=== PATIENT | female | born 1960 | race Caucasian/White ===

== ENCOUNTER 2019-12-02 09:00 | Outpatient (RCR) | payer OTHER, SELFPAY ==
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
--- NOTE | 2019-09-03 08:20 | PCOTNOTE ---
Pt was called and cancelled appt this date 10/27 no insurance authorization.
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
--- NOTE | 2019-10-23 11:13 | PCPTNOTE ---
Patient called & cancelled scheduled appointment this date due to not being able to make it.
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
--- NOTE | 2019-10-31 14:21 | PCOTNOTE ---
Patient called and cancelled OT tx today due to illness.
--- NOTE | 2019-10-31 14:25 | PCPTNOTE ---
Patient called & cancelled scheduled appointment this date due to illness.
[2019-11-14 13:04] VITALS: BP_SYST 95
--- NOTE | 2019-11-14 14:43 | PTOPEVAL ---
PHYSICAL THERAPY PLAN OF CARE UPDATE AND PROGRESS REPORT Thank you for referring this patient to [facility]. I recommend continuing physical therapy to treat frozen shoulder for 2x/week for 4 weeks. Please review, sign, date and return this plan of care CARRIE. I agree with and certify that the following plan of care is medically necessary. Referring Physician Date Re-evaluation Diagnosis frozen shoulder Onset 06/26/19 Subjective Information Ar is here today after a Query Text:As Reported By Patient/ month of therapy following a Family frozen shoulder (obtained from immobilization following wrist ORIF). She is noticing greater ease in dressing, cooking, folding laundry, and carrying. Self Report Self Report Pain Level 0 Pain Score Pain Score 0: Self Report Additional Pain Score Comments Pt stated her pain was at a 3 after stretching and exercises. Scapular/ Shoulder Range of Motion Right Shoulder Flexion - Active 118 Shoulder Flexion - Passive 145 Shoulder Abduction - Active 81 Shoulder Abduction - Passive 95 Shoulder Medial Rotation - Active T11 Query Text:Reach Behind the Back Shoulder Lateral Rotation - Active 50 Shoulder Lateral Rotation - Passive 75 Shoulder Lateral Rotation - Active T2 Query Text:Reach Behind the Head Scapular/Shoulder Range of Motion horizontal abduction: Comments 87degrees Thumb Range of Motion Right Thumb MCP Flexion - Active 70 Thumb MCP Extension - Active 0 Thumb IP Flexion - Active 70 Thumb IP Extension - Active 0 Thumb CMC Radial Abduction - Active 45 Thumb Range of Motion Comments She contineus to have an adduction contracture of the thumb limited full opposition and rotation to touch the tip of the pinky, but she is now able to touch the of the tip of the pinky. AROM improved in the MCP and IP to normal limits. Scapular/Shoulder Strength Right Shoulder Flexion Strength 4+ Good + Shoulder Abduction Strength 4- Good - Shoulder Medial Rotation Strength 4+ Good + Shoulder Lateral Rotation Strength 4- Good - Clinical Summary Michela is participating in physical therapy for right frozen shoulder. She presents today with progress toward meeting her funct
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
--- NOTE | 2019-12-02 11:45 | PCOTNOTE ---
This treatment is being continued on visit number [id number]. Please see documentation on both accounts to view progress. Completed interventions, outcomes, and problems have been marked as Inactive to facilitate the copying of the Care plan routine for recurring accounts.
== END 2019-12-02 09:18 | disposition home or self-care (01) ==
LOC: ANHOT 09:00
PROVIDERS: PCP Internal Medicine Infectious Disease
DX: S63.014D Dislocation of distal radioulnar joint of right wrist, subsequent encounter (principal); S52.692D Other fracture of lower end of left ulna, subsequent encounter for closed fracture with routine healing; S52.501D Unspecified fracture of the lower end of right radius, subsequent encounter for closed fracture with routine healing; S82.001D Unspecified fracture of right patella, subsequent encounter for closed fracture with routine healing; M75.01 Adhesive capsulitis of right shoulder
CPT/HCPCS: 97018; 97022; 97035; 97110; 97140; 97161; 97165; 97760

== ENCOUNTER 2019-12-23 09:00 | Outpatient (RCR) | payer OTHER, SELFPAY ==
[2019-12-02 09:19] VITALS: BP_SYST 95
--- NOTE | 2019-12-02 11:44 | PCOTNOTE ---
The treatment documented on this account is a continuation of the treatment documented on visit number [id number]. Please see documentation on both accounts to view progress. The Plan of Care has been transitioned and updated within the new V#. I have addressed and agree with the discipline specific Problems, Interventions, and Goals for the current certification period. Completed interventions, outcomes, and problems have been marked as Inactive to facilitate the copying of the Care plan routine for recurring accounts.
--- NOTE | 2019-12-04 15:35 | PCPTNOTE ---
Patient called & cancelled scheduled appointment this date due to feeling unwell.
--- NOTE | 2019-12-23 08:38 | PTOPEVAL ---
PHYSICAL THERAPY DISCHARGE REPORT Thank you for referring this patient to [facility]. I recommend Michela discharge from PT at this time. Please review, sign, date and return this plan of care CARRIE. I agree with and certify that the following plan of care is medically necessary. Referring Physician Date Evaluation Information Problem Diagnosis right frozen shoulder Subjective Information Reports that she notices that Query Text:As Reported By Patient/ she can do more activities Family than she was prior. Pain can reach a 6/10 but only when she is doing alot of activity. She is not working due to COVID-19 precautions. Pain Assessment Timing of Pain Assessment Timing of Pain Assessment Assessment Pain Scale Pain Scale Used Numeric (1 - 10) Self Report Pain Assessment Right Shoulder(s) Reported Pain Level 0 Shoulder Right Shoulder Flexion - Active 167 Shoulder Abduction - Active 161 Shoulder Medial Rotation - Active L1 Query Text:Reach Behind the Back Shoulder Lateral Rotation - Active T3 Query Text:Reach Behind the Head Scapular/Shoulder Range of Motion horizontal abduction: 91 Comments Scapular/Shoulder Right Shoulder Flexion Strength 5 Normal Shoulder Abduction Strength 5 Normal Shoulder Medial Rotation Strength 5 Normal Shoulder Lateral Rotation Strength 5 Normal Palpation end range PROM spongey end feel, especially for ER and IR at 90deg abduction PT Clinical Summary Michela has been participating in physical therapy for right adhesive capsulitis. She demonstrates that she has met her functional goals at this time. She was re-educated on HEP including shoulder ER and IR stretches and she states she is confident and comfortable in performing. Michela understands to continue her HEP to continue feeling comfortable and gaining strength. I recommend discharge from PT at this time. PT Services Indicated No Potential Barriers to Goal Achievements None Support Requirements For Optimal None [place] Patient/Caregiver Informed of Benefits/ Yes Risks of Rehabilitation Patient/Caregiver Participated in Plan
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
== END 2019-12-23 11:29 | disposition home or self-care (01) ==
LOC: ANHOT 09:00
PROVIDERS: PCP Internal Medicine Infectious Disease
DX: S63.014D Dislocation of distal radioulnar joint of right wrist, subsequent encounter (principal); S52.692D Other fracture of lower end of left ulna, subsequent encounter for closed fracture with routine healing; S52.501D Unspecified fracture of the lower end of right radius, subsequent encounter for closed fracture with routine healing; S82.001D Unspecified fracture of right patella, subsequent encounter for closed fracture with routine healing; M75.01 Adhesive capsulitis of right shoulder
CPT/HCPCS: 97018; 97035; 97110; 97140

== ENCOUNTER 2020-02-24 07:11 | Outpatient (CLI) | payer OTHER, SELFPAY ==
--- NOTE | ~2020-02-24 | CT_ITS ---
EXAMINATION: CT lung screening EXAM DATE: 02/24/2020 07:34 INDICATION: Past history of smoking, shortness of breath. Personal history of nicotine dependence. TECHNIQUE: Spiral low dose CT of the chest without contrast. Axial, coronal and sagittal images were reviewed. The dose-length product (DLP) for this examination was 66.55 mGy-cm. The exposure was ta ilored according to patient size (auto mA exposure control), and iterative reconstruction (ASIR) was used as additional dose reduction technique. There is no prior study for comparison. FINDINGS: There is severe hyperinflation and emphysema. Opacities consistent with scarring. Tracheob ronchial tree is patent. There is no mediastinal, hilar or axillary lymphadenopathy. There are no pleural or pericardial effusions. There is no pneumothorax. Heart normal in size. There is mod erate coronary arterial calcification, arterial sclerosis. Upper abdomen is unremarkable. There is thoracic spondylosis without osteoblastic or osteolytic lesions identified. IMPRESSION: Lung-RADS category 2, benign appearance or behavior (<1% chance of malignancy); recommend continued LDCT screening in 1 year. Reviewed, dictated and finalized at location A.
== END 2020-02-24 07:12 | disposition home or self-care (01) ==
PROVIDERS: PCP Internal Medicine Infectious Disease; Visit Provider Internal Medicine Infectious Disease
DX: Z12.2 Encounter for screening for malignant neoplasm of respiratory organs (principal); Z87.891 Personal history of nicotine dependence
CPT/HCPCS: G0297

== ENCOUNTER 2025-07-10 08:01 | Outpatient (CLI) | payer MEDICARE, SELFPAY ==
--- OUTSIDE RECORDS SUMMARY | 2025-07-10 08:10 | XMS_ITS | Clinical Summary ---
Author Organization [facility] Address [address] [address] Care Team Providers Care Survey Field Technician Name Role Phone Mckenna Richter MD Primary Care Provider Source Comments [facility],non-owned Affiliates and Associated Physician Practices is amultiple site organization consisting of ambulatory clinics and hospital sitesin [place], [place], [place] and [place]. This disclosure is being madepursuant to the Care Everywhere program and may not contain all information available regarding this patient. Last updated 18.[facility] Allergies Active Allergy Reactions Criticality Noted Date Comments Hydrocodone Other 06/12/2020 Hydrocodone-Acetaminophen Dizziness High 10/13/2015 eyes rolled into the back of my head and I passed out Medications * Be aware that medications may not be up to date on this document. Alwaysverify current medications with the patient. albuterol HFA (PROAIR HFA) 108 (90 Base) MCG/ACT inhaler Inhale 2 puffs by mouth every 4 hours as needed for Shortness of Breath or Wheezing Active atorvastatin (LIPITOR) 10 MG tablet Take 10 mg by mouth at bedtime Active ipratropium hfa (ATROVENT HFA) 17 MCG/ACT inhaler Inhale 2 puffs by mouth 3 times daily Active acetaminophen (TYLENOL) 325 MG tablet Take 2 tablets by mouth every 6 hours while awake Maximum allowable Acetaminophen amount = 4 Grams (4000 mg) / 24 hours. 120 tablet 5 9 Active calcium-vitami n D (CALTRATE PLUS D) 600-200 MG-UNIT tablet Take 1 tablet by mouth once daily Active GNP ADULT ASPIRIN LOW STRENGTH 81 MG chew tablet 0 Active BISACODYL EC 5 MG tablet 0 Active SYMBICORT 160-4.5 MCG/ACT inhaler 0 Active ASPIRIN LOW DOSE 81 MG tablet 0 Active traMADol (ULTRAM) 50 MG tablet tramadol 50 mg tablet Active budesonide-for moterol (SYMBICORT) 160-4.5 MCG/ACT inhaler Symbicort 160 mcg-4.5 mcg/actuation HFA aerosol inhaler Active hydrocortisone , rectal, (ANUSOL-HC) 2.5 % cream Proctozone-HC 2.5 % topical cream perineal applicator Active PROCTOZONE-HC 2.5 % cream 0 Active rosuvastatin (CRESTOR) 20 MG tablet 0 Active multivitamin daily (ONE A DAY) tablet 0 Active CALCIUM-MAGNES IUM-ZINC PO Take 1 tablet by mouth once daily Active estrogens, conjugated, (PREMARIN) 0.625 MG/GM vaginal cream Insert 1 applicator into the vagina Two times a week Active Active Problems Problem Noted Date Diagnosed Date Syncope and collapse 09/03/2020 Closed fracture of lower end of right radius with routine healing 06/17/2019 Closed fracture of lower end of left ulna with routine healing 06/17/2019 Closed nondisplaced fracture of right patella with routine healing 06/17/2019 Wrist pain, acute, right 06/11/2019 Hyperlipidemia 04/01/2019 PVD (posterior vitreous detachment), right 07/17 Epiretinal membrane (ERM) of right eye 8 Chronic obstructive pulmonary disease 03/22/2016 Gastroesophageal reflux disease 03/22/2016 Osteoporosis 03/22/2016 Prediabetes 03/22/2016 Migraine 10/13/2015 Chest pain 11/18/2010 Family history of ischemic heart disease 011 Hypertension 11/18/2010 Personal history of nicotine dependence 11/18/19 11 Shortness of breath 11/18/2010 Closed dislocation of distal radioulnar joint of right wrist Resolved Problems Problem Noted Date Diagnosed Date Resolved Date Sinusitis 09/03/2020 10/01/2020 Immunizations Immunization Administration Dates Next Due INFLUENZA VACCINE 07/22/2020 INFLUENZA VACCINE, QUADR. (F LUZONE; FLULAVAL; FLUARIX; AFLURIA QUADRIVALENT; 6MO+), 0.5 ML (IIV4) 06/12/2019 Family History Medical History Relation Name Comments CAD (Coronary Artery Disease) Father Diabetes - Type 2 Mother CAD (Coronary Artery Disease) Paternal Grandfather Relation Name Status Comments Father Mother Paternal Grandfather Social History Tobacco Use Types Packs/Day Years Used Date Smoking Tobacco: Former Cigarettes Q uit: 04/25/2017 Smokeless Tobacco: Never Comments:1 PPD for 40 years Alcohol Use Standard Drinks/Week Comments No 0 (1 standard drink = 0.6 oz pur e alcohol) Comments No Sex and Gender Information Value Date Recorded Sex Assigned at Not on file Legal Sex Female 2:07 PM CDT Gender Identity Not on file Sexual Orientation Not on file Last Filed Vital Signs Vital Sign Reading Time Taken Comments Blood Pressure 124/79 06/23/2020 11:20 AM CDT Pulse 75 06/23/2020 11:20 AM CDT Temperature 36.2 C (97.2 F) 06/23/2020 10:50 AM CDT Respiratory Rate 19 06/23/2020 11:20 AM CDT Oxygen Saturation 98% 06/23/2020 11:20 AM CDT Inhaled Oxygen Concentration 21% 06/26/2019 7 :15 AM CDT Weight 41.3 kg (91 lb) 06/23/2020 8:10 AM CDT Height 162.6 cm (5' 4) 06/23/2020 8:10 AM CDT Body Mass Index 15.62 06/23/2020 8:10 AM CDT Plan of Treatment Health Maintenance Due Date Last Done Comments BONE DENSITY TESTING 1960 COLON MONITORING 1960 COLONOSCOPY - COLON CA SCREENING 1960 CT COLONOGRAPHY - COLON CA SCREENING 1960 FIT - COLON CA SCREENING 1960 FLEX SIG - COLON CA SCREENING 1960 MAMMOGRAM 1960 HIV SCREENING 01/28/1975 HEPATITIS C SCREENING 01/24/1978 DTAP/TDAP/TD VACCINES (1 - Tdap) 01/28/1979 PNEUMOCOCCAL VACCINE 50+ (1 of 2 - PCV) 01/28/1979 ZOSTER VACCINE (1 of 2) 01/28/2010 Respiratory Syncytial Virus (RSV) Vaccine Pt: or over 60 yrs (1 - Risk 60-74 years 1-dose series) 2020 COLOGUARD (AGES 45-75) - COL ON CA SCREENING 02/26/2023 02/27/2020 Colorectal Cancer Screening 02/26/2023 DEPRESSION SCREENING 09/25/2024 COVID-19 VACCINE (1 - 2023-2 5 season) 2025 INFLUENZA VACCINE (#1) 2025 0, 06/12/2019 HEPATITIS B VACCINE Aged Out No longe r eligible based on patient's age to complete this topic HIB VACCINE Aged Out No longer eligi ble based on patient's age to complete this topic HPV VACCINE Aged Out No longer eligi ble based on patient's age to complete this topic MENINGOCOCCAL (Group B) VACCINE SHARED DECISION-MAKING Aged Out No longer eligible based on patient's age to complete this topic MENINGOCOCCAL GROUPS A/C/Y/W VACCINE Aged Out No longer eligible b ased on patient's age to complete this topic Goals Goal Patient Goal Type Associated Problems Recent Progress Patient-Stated? Author Mobility General No Juan José Simpson, RN Note: Expected end date: 02-11 The goal is to maintain or improve your mobility at the optimum level for you. Interventions: Medical Devices Implanted Type Area Gage Designer Device Identifier Shelf Expiration Date Model / Serial / Lot Dvr Crosslock Standard Plate Right Implanted:Qty: 1 on 06/26/2019 by Daylin Cutler MD at [facility] Right: Wrist [id number] / / Wire K 2mm 6in Fx Nonster Implanted:Qty: 2 on 06/26/2019 by Daylin Cutler MD at [facility] Right: Wrist [employer] [id number] / / [place] Tefl Implanted:Qty: 1 on 06/26/2019 by Daylin Cutler MD at [facility] Right: Wrist [employer] 10/18/2023 [id number] / / Screw 27.Mm X 22m Implanted:Qty: 1 on 06/26/2019 by Daylin Cutler MD at [facility] Right: Wrist [id number] / / Wire K 1.6mm Ss Fx Nonster Implanted:Qty: 3 on 06/26/2019 by Daylin Cutler MD at [facility] Right: Wrist [employer] [id number] / / Low Profile Non-Locking Screw 2.7mm, 12mm Implanted:Qty: 1 on 06/26/2019 by Daylin Cutler MD at [facility] Right: Wrist [id number] / / Screw 2.7mm 14mm Lopro Nonster Bone Lf Implanted:Qty: 1 on 06/26/2019 by Daylin Cutler MD at [facility] Right: Wrist [employer] [id number] / / Screw 2.7mm 16mm Lopro Nonster Bone Lf Implanted:Qty: 1 on 06/26/2019 by Daylin Cutler MD at [facility] Right: Wrist [employer] [id number] / / Locking Screw 2.7mm, 14mm Implanted:Qty: 1 on 06/26/2019 by Daylin Cutler MD at [facility] Right: Wrist [id number] / / Screw 2.7mm 20mm Crsslck Tpr Head 3 Ld Implanted:Qty: 4 on 06/26/2019 by Daylin Cutler MD at [facility] Right: Wrist [employer] [id number] / / Screw 2.7mm 22mm Lck Christiano Nonster Bone Implanted:Qty: 2 on 06/26/2019 by Daylin Cutler MD at [facility] Right: Wrist [employer] [id number] / / Multi-Directio nal Screw 2.7mm, 22mm Implanted:Qty: 1 on 06/26/2019 by Daylin Cutler MD at [facility] Right: Wrist [id number] / / Lens Iol 0 D +19 [place] Mod L Planar Acrsf - [id number] Implanted:Qty: 1 on 03/17/2020 by Rajesh Lopez MD at [facility] Right: Eye Jose Digerati 05/25/2022 [id number] / [id number] / Acrysof. Iq Iol With Ultrasert 19.0 Implanted:Qty: 1 on 06/23/2020 by Erma Lepe MD at [facility] 03/09/2023 [id number] 19.0D / [id number] / Insurance [facility] AENA Advance Directives * Full Code (Latest Code Status on File) Date Activated Date Inactivated Comments 06/11/2019 2:02 AM 06/12/2019 3:33 PM * Full Code Date Activated Date Inactivated Comments 06/11/2019 12:19 AM 06/11/2019 2:02 AM Care Teams Survey Field Technician Relationship Specialty Start Date End Date Mckenna Richter MD [address] [place], [place] [id number] PCP - General Internal Medicine 06/10/19
--- OUTSIDE RECORDS SUMMARY | 2025-07-10 08:10 | XMS_ITS | Clinical Summary ---
Author Organization [facility] Address [address] [place] [address] Phone Care Team Providers Care Refinery Operator Coking Name Role Phone Mckenna Richter MD Primary Care Provider Allergies Active Allergy Reactions Criticality Noted Date Comments Hydrocodone-Acetamin ophen Other (see Comments) High 10/13/2015 eyes rolled into the back of my head and I passed out Medications acetaminophen (TYLENOL) 325 MG Tablet Take 325 mg by mouth every 4 hours as needed (2 tabs occasionally). Active VENTOLIN HFA 108 (90 Base) MCG/ACT Aerosol SolutionIndicati ons:Chronic obstructive pulmonary disease, unspecified COPD type take 2 Puffs by inhalation every 4 hours as needed for Wheezing. 8.5 g 8 Active Active Problems Problem Noted Date Diagnosed Date Tobacco use disorder 03/20/2017 Gastroesophageal reflux disease 03/22/2016 Gastritis without bleeding 03/22/2016 Prediabetes 03/22/2016 Osteoporosis 03/22/2016 Chronic obstructive pulmonary disease 03/22/2016 Migraine 10/13/2015 Resolved Problems Problem Noted Date Diagnosed Date Resolved Date Sinus bradycardia 10/13/2015 03/22/2016 Family History Medical History Relation Name Comments Chronic Obstructive Pulmonary Disease Father Colon Cancer Father Heart Disease Father Diabetes Maternal Grandfather Heart Disease Maternal Grandfather Diabetes Maternal Grandmother Heart Disease Maternal Grandmother Diabetes Mother Hepatitis Mother Rheumatoid Arthritis Mother Diabetes Paternal Grandfather Heart Disease Paternal Grandfather Diabetes Paternal Grandmother Relation Name Status Comments Father Maternal Grandfather Maternal Grandmother Mother Paternal Grandfather Paternal Grandmother Social History Tobacco Use Types Packs/Day Years Used Date Smoking Tobacco: Former Cigarettes 0.5 43 Smokeless Tobacco: Never Alcohol Use Standard Drinks/Week Comments No 0 (1 standard drink = 0.6 oz pur e alcohol) Comments No Sex and Gender Information Value Date Recorded Sex Assigned at Not on file Legal Sex Female 11:36 AM UX VISUAL DESIGNER Gender Identity Not on file Sexual Orientation Not on file Last Filed Vital Signs Vital Sign Reading Time Taken Comments Blood Pressure 108/70 11/06/2017 10:35 AM UX VISUAL DESIGNER Pulse 66 11/06/2017 10:35 AM UX VISUAL DESIGNER Temperature 36.4 C (97.5 F) 11/06/2017 10:35 AM UX VISUAL DESIGNER Respiratory Rate 18 11/06/2017 10:35 AM UX VISUAL DESIGNER Oxygen Saturation 98% 11/06/2017 10:35 AM UX VISUAL DESIGNER Inhaled Oxygen Concentration - - Weight 39 kg (86 lb) 11/06/2017 10:35 AM UX VISUAL DESIGNER Height 167.6 cm (5' 6) 11/06/2017 10:35 AM UX VISUAL DESIGNER Body Mass Index 13.88 11/06/2017 10:35 AM UX VISUAL DESIGNER Plan of Treatment Health Maintenance Due Date Last Done Comments Hepatitis C Virus (HCV) Screening 1960 TdaP Immunization 1960 Pneumococcal Immunization (5 0+ years) (1 of 2 - PCV) 01/28/1979 Cologuard 01/28/2005 Colonoscopy 01/28/2005 Colorectal Cancer Screening 01/28/2005 Immunochemical Fecal Occult Blood 01/28/2005 Zoster Immunization (1 of 2) 01/28/2010 Respiratory Syncytial Virus (RSV) Immunization (Adult) (1 - Risk 60-74 years 1-dose series) 2020 Influenza Immunization (#1) 2025 SARS-COV-2 Immunization ( season) 2025 Hepatitis B Immunization Aged Out No longer eligible based on patient's age to complete this topic Human Papillomavirus (HPV) Immunization Aged Out No longer eligible b ased on patient's age to complete this topic Meningococcal Immunization (ACWY) Aged Out No longer eligible based on patient's age to complete this topic Rotavirus Immunization Aged Out No lo nger eligible based on patient's age to complete this topic Care Teams Refinery Operator Coking Relationship Specialty Start Date End Date Mckenna Richter MD [address] [place] [address] PCP - General Internal Medicine 02/12/21
--- OUTSIDE RECORDS SUMMARY | 2025-07-10 08:10 | XMS_ITS | Clinical Summary ---
Author Organization [facility] [address] [place] [id number] Care Team Providers Care Structural Ironworker Name Role Phone Mckenna Richter MD Primary Care Provider Deandre Gonzalez MD Unavailable [phone] Allergies Active Allergy Reactions Criticality Noted Date Comments Acetaminophen-Codeine Unknown High 11/22/2010 Codeine Dizziness Low Sedated s/e Medications aspirin 81 mg enteric coated tablet 0 Active Tab-A-Cornelia 400 mcg tablet 1 Active ipratropium (ATROVENT HFA) 17 mcg/actuation inhaler Inhale 2 puffs 3 (three) times a day Active Easi[employer]ent [employer] Chamber inhaler 1 Active Symbicort 160-4.5 mcg/actuation inhaler 1 Active ProAir HFA 90 mcg/actuation inhaler 1 Active acetaminophen (TYLENOL) 325 mg tablet Take 2 tablets (650 mg total) by mouth 9 Active atorvastatin (LIPITOR) 80 mg tablet TAKE 1 TABLET BY MOUTH EVERY DAY TO LOWER CHOLESTEROL 3 Active megestroL (MEGACE) 40 mg tablet Take 1 tablet (40 mg total) by mouth 3 (three) times a day 3 Active metoprolol tartrate (LOPRESSOR) 25 mg immediate release tablet TAKE 1/2 TABLET BY MOUTH TWICE A DAY FOR BLOOD PRESSURE 3 Active pen needle, diabetic 32 gauge x 5/32 needle 1 each daily 100 each [address] (PROTONIX) 40 mg EC tablet Take 1 tablet (40 mg total) by mouth daily 4 Active denosumab (PROLIA) 60 mg/mL syringeIndicatio ns:postmenopausa l osteoporosis and high fracture risk Inject 1 mL (60 mg total) under the skin once for 1 dose 1 mL 5 Active Active Problems Problem Noted Date Diagnosed Date Hypercalcemia 12/04/2024 Assessment & Plan (03/25/2025 9:57 AM CDT): Chronic problem. Now seeing Dr Gonzalez (renal in [place]) SAW 10/22/24, 01/14/25, 07/08/25. Will sign release to get copy of recent notes/labs. Low serum parathyroid hormone (PTH) 12/04/2024 Assessment & Plan (03/25/2025 9:57 AM CDT): Chronic problem. Now seeing Dr Gonzalez (renal in [place]) SAW 10/22/24, 01/14/25, 07/08/25. Will sign release to get copy of recent notes/labs. Hyperthyroidism 12/04/2024 Assessment & Plan (03/25/2025 9:54 AM CDT): New problem. Had labs & US completed at [facility] 11/2024 but never rec'd results (office called to get them faxed here today). Will recheck TFTs today as those labs will be 3+ mos old. Will update labs. Does not mychart. Verified phone #/address to contact re: results. Other osteoporosis without current pathological fracture 09/12/2023 Assessment & Plan (03/25/2025 9:56 AM CDT): Chronic problem. Started Tymols 80mcg injection daily 09/2023 but had to stop d/t leg pain. Prolia injection 12/12/24. Due end of 05/2025. Instructed to contact [employer] to get cheaper Prolia through patient support: [phone] Seeing renal & calcium/D stopped. Follow a Bone Healthy Diet and lifestyle: -Consume Calcium and vit D rich foods -Fall precautions--be careful. Bone thinning could be an easy fracture. -Perform weight bearing exercises at least 3 days a week for bone strengthening (walking is an excellent option). Will update labs & DEXA at [facility] in [place]. Does not mychart. Verified phone #/address to contact re: results. Assessment & Plan (10/08/2024 10:15 AM HAND TUBE WINDER): Chronic problem. Started Tymols 80mcg injection daily 09/2023. Discussed that not to exceed 2 years of treatment. Follow a Bone Healthy Diet and lifestyle: -Consume Calcium and vit D rich foods -Calcium and vitamin D3 supplementation daily.). -Fall precautions--be careful. Bone thinning could be an easy fracture. -Perform weight bearing exercises at least 3 days a week for bone strengthening (walking is an excellent option). Will update labs & DEXA at [facility] in [place]. Does not mychart. Verified phone #/address to contact re: results. Assessment & Plan (01/09/2024 9:48 AM CDT): Chronic problem. Started Tymols 80mcg injection daily 09/2023. Discussed that not to exceed 2 years of treatment. Will update labs today. Does not mychart. Verified phone #/address to contact re: results. Will sign release to get copy of Dexa from [facility] today. Assessment & Plan (09/12/2023 1:00 PM HAND TUBE WINDER): Multifactorial, in a patient with early surgical menopause, heavy smoker most of her adult life. Daily weight bearing exercise were recommended as well as fall precautions discussed 600 mg daily elemental calcium twice a day recommended 800-1000 IU of vid D recommended. Check serum vit D levels. Might recommended Prescription vit D if very low levels are found. Would recommend to start anabolic agents, with Tymlos Rx was sent. Vitamin D deficiency 09/12/2023 Assessment & Plan (03/25/2025 9:58 AM CDT): Chronic problem. Now seeing Dr Gonzalez (renal in [place]) SAW 10/22/24, 01/14/25, NOV 07/08/25. Will sign release to get copy of recent notes/labs. Calcium/vitamin D stopped 10/[address] Lisa. Assessment & Plan (10/08/2024 9:59 AM HAND TUBE WINDER): Chronic problem. Currently taking 800-1000IU daily. Will update labs at [facility] in [place]. Does not mychart. Verified phone #/address to contact re: results. Component Latest Ref Rng 09/12/2023 01/09/2024 Vitamin D 25-OH 30 - 80 ng/mL 58 56 Assessment & Plan (01/09/2024 9:53 AM CDT): Chronic problem. Currently taking 800-1000IU daily. Will update labs today. Does not mychart. Verified phone #/address to contact re: results. Component Latest Ref Rng 09/12/2023 Vitamin D 25-OH 30 - 80 ng/mL 58 Surgical History Surgery Date Site/Laterality Comments TONSILLECTOMY HYSTERECTOMY WRIST SURGERY Medical History Medical History Date Comments High cholesterol Brain aneurysm Pacemaker COPD (chronic obstructive pulmonary disease) CAD (coronary artery disease) SD (myocardial infarction) (HCC) 2020 Family History Medical History Relation Name Comments Skin cancer Sister Relation Name Status Comments Sister Social History Tobacco Use Types Packs/Day Years Used Date Smoking Tobacco: Former Smokeless Tobacco: Former Alcohol Use Standard Drinks/Week Comments Not Currently 0 (1 standard drink = 0.6 oz pur e alcohol) PHQ-2 Answer Date Recorded PHQ-2 Total Score (If total score is 3 or more points, staff should administer the PHQ-9) 2 09/12/2023 Personal Safety Answer Date Recorded Have you ever been in or are you currently in a harmful physical or emotional relationship or is someone making you feel afraid or unsafe? Denies 12/12/2024 Comments Unknown Sex and Gender Information Value Date Recorded Sex Assigned at Not on file Legal Sex Female 7:14 AM HAND TUBE WINDER Gender Identity Not on file Sexual Orientation Not on file Obstetrics History Last Filed Vital Signs Vital Sign Reading Time Taken Comments Blood Pressure 110/72 03/25/2025 9:03 AM CDT Pulse 80 03/25/2025 9:03 AM CDT Temperature 37.4 C (99.3 F) 12/12/2024 1:49 PM CDT Respiratory Rate 16 03/25/2025 9:03 AM CDT Oxygen Saturation 100% 12/12/2024 1:49 PM CDT Inhaled Oxygen Concentration - - Weight 43.7 kg (96 lb 6.4 oz) 03/25/2025 9:03 AM CDT Height 167.6 cm (5' 5.98) 03/25/2025 9:03 AM CD T Body Mass Index 15.57 03/25/2025 9:03 AM CDT Plan of Treatment Health Maintenance Due Date Last Done Comments Breast Cancer Screening-Mammogram 1960 Colon Cancer Screening-Colonoscopy 1960 Hepatitis C Screening 1960 DTaP/Tdap/Td Vaccine (1 - Tdap) 01/28/1971 Hepatitis B Screening 01/28/1978 Pneumococcal vaccine 65+ (1 of 2 - PCV) 01/28/1979 Zoster Vaccine (1 of 2) 01/28/1979 Depression Screening 09/12/2024 09/12/2023 Well Visit 65+ 01/28/2025 Influenza Vaccine (#1) 2025 07/22/2020, 2018 Fall Risk Assessment 12/12/2025 12/12/2024, 09/12/2023, 11/03/2020 Osteoporosis Screening-Bone Density Scan 11/06/2026 11/06/2024 Procedures Procedure Name Priority Date/Time Associated Diagnosis Comments DEXA AXIAL SKELETON BONE DENSITY 1 OR MORE SITES Schedule Routine, Read Routine (OP Routine) 11/06/2024 11:16 AM HAND TUBE WINDER Other osteoporosis without current pathological fracture from Last 3 Months or Most Recently Relevant to Health Maintenance Results * Dexa Axial Skeleton Bone Density 1 or 2 Site (11/06/2024 11:16 AM HAND TUBE WINDER) Anatomical Region Laterality Modality Body N/A Radiographic Giuliana ging 11/06/2024 11:1 6 AM HAND TUBE WINDER us Jemima Arguello NP IMG DXA PROCEDURES Final Result from Last 3 Months or Most Recently Relevant to Health Maintenance Insurance [facility] AETNA MEDICARE GOLD Care Teams Structural Ironworker Relationship Specialty Start Date End Date Mckenna Richter MD [address] [place] [address] PCP - General Internal Medicine 09/12/23 Deandre Gonzalez MD [address] [address] Consulting Physician Nephrology 03/25/25
--- NOTE | 2025-07-10 13:11 | WPDSIXMINUTE ---
Six Minute Walk Procedure Procedure Performed Pulmonary Stress Test (6 min walk) Six Minute Walk Six Minute Walk: This is a 6 minute walk test. The test was performed and interpreted in accordance with the 2014 ERS/ATS task force guidelines. Findings: The patient's resting room air oxygen saturation measured by pulse oximetry was 96%, the heart rate was 81 bpm, and the modified Matt dyspnea score was 0.5. Patient ambulated for 305 meters and oxygen saturation remained 89 to 94%. At the end of the study the heart rate was 99 bpm and the modified Matt dyspnea score was 3. The patient did not qualify for supplemental oxygen at rest or with ambulation. There are no prior studies for comparison.
== END 2025-07-10 08:02 | disposition home or self-care (01) ==
PROVIDERS: PCP Internal Medicine Infectious Disease; Visit Provider Internal Medicine Pulmonary Disease
DX: J44.9 Chronic obstructive pulmonary disease, unspecified (principal)
CPT/HCPCS: 94618

== ENCOUNTER 2025-07-24 07:41 | Outpatient (CLI) | payer MEDICARE, SELFPAY ==
--- OUTSIDE RECORDS SUMMARY | 2025-07-15 10:16 | XMS_ITS | Clinical Summary ---
Author Organization [facility] [address] [place] [id number] Care Team Providers Care Head Bucker Name Role Phone Mckenna Richter MD Primary Care Provider Deandre Gonzalez MD Unavailable [phone] Allergies Active Allergy Reactions Criticality Noted Date [...] problem. Now seeing Dr Gonzalez (renal in [place]) SAW 10/22/24, 01/14/25, 07/08/25. Will sign release to get copy of recent notes/labs. Low serum parathyroid hormone (PTH) 12/04/2024 Assessment & Plan (03/25/2025 9:57 AM CDT): Chronic problem. Now seeing Dr Gonzalez (renal in [place]) SAW 10/22/24, 01/14/25, 07/08/25. Will sign release to get copy of recent notes/labs. Hyperthyroidism 12/04/2024 Assessment & Plan (03/25/2025 9:54 AM CDT): New problem. Had labs & US completed at [facility] 11/2024 but never rec'd results (office called [...] Due end of 05/2025. Instructed to contact [employer] to get cheaper Prolia through patient support: [phone] Seeing renal & calcium/D stopped. Follow a Bone Healthy Diet and lifestyle: -Consume Calcium and vit D rich foods -Fall precautions--be careful. Bone thinning could be an easy fracture. -Perform weight bearing exercises at least 3 days a week for bone strengthening (walking is an excellent option). Will update labs & DEXA at [facility] in [place]. Does not mychart. Verified phone #/address to contact re: results. Assessment & Plan (10/08/2024 10:15 AM PERFORATOR OPERATOR): Chronic problem. Started Tymols 80mcg injection daily [...] option). Will update labs & DEXA at [facility] in [place]. Does not mychart. Verified phone #/address to contact re: results. Assessment & Plan (01/09/2024 9:48 AM CDT): Chronic problem. Started Tymols 80mcg injection daily 09/2023. Discussed that not to exceed 2 years of treatment. Will update labs today. Does not mychart. Verified phone #/address to contact re: results. Will sign release to get copy of Dexa from [facility] today. Assessment & Plan (09/12/2023 1:00 PM PERFORATOR OPERATOR): Multifactorial, in a patient with early surgical [...] problem. Now seeing Dr Gonzalez (renal in [place]) SAW 10/22/24, 01/14/25, NOV 07/08/25. Will sign release to get copy of recent notes/labs. Calcium/vitamin D stopped 10/[address] Lisa. Assessment & Plan (10/08/2024 9:59 AM PERFORATOR OPERATOR): Chronic problem. Currently taking 800-1000IU daily. Will update labs at [facility] in [place]. Does not mychart. Verified phone #/address to [...] obstructive pulmonary disease) CAD (coronary artery disease) [place] (myocardial infarction) (HCC) 2020 Family History Medical [...] on file Legal Sex Female 7:14 AM PERFORATOR OPERATOR Gender Identity Not on file Sexual Orientation [...] Read Routine (OP Routine) 11/06/2024 11:16 AM PERFORATOR OPERATOR Other osteoporosis without current pathological fracture from Last 3 Months or Most Recently Relevant to Health Maintenance Results * Dexa Axial Skeleton Bone Density 1 or 2 Site (11/06/2024 11:16 AM PERFORATOR OPERATOR) Anatomical Region Laterality Modality Body N/A Radiographic Giuliana ging 11/06/2024 11:1 6 AM PERFORATOR OPERATOR us Jemima Arguello NP IMG DXA PROCEDURES Final Result from Last 3 Months or Most Recently Relevant to Health Maintenance Insurance [facility] [employer] MED[employer] GOLD Care Teams Head Bucker Relationship Specialty Start Date End Date Mckenna Richter MD [address] [place] [address] PCP - General Internal Medicine 09/12/23 Deandre Gonzalez MD [address] [address] Consulting Physician Nephrology 03/25/25
--- OUTSIDE RECORDS SUMMARY | 2025-07-15 10:17 | XMS_ITS | Clinical Summary ---
Author Organization [facility] Address [address] [place] [address] Phone Care Team Providers Care Bench Worker Apprentice Name Role Phone Mckenna Richter MD Primary [...] on file Legal Sex Female 11:36 AM ENGAGEMENT MGR Gender Identity Not on file Sexual Orientation Not on file Last Filed Vital Signs Vital Sign Reading Time Taken Comments Blood Pressure 108/70 11/06/2017 10:35 AM ENGAGEMENT MGR Pulse 66 11/06/2017 10:35 AM ENGAGEMENT MGR Temperature 36.4 C (97.5 F) 11/06/2017 10:35 AM ENGAGEMENT MGR Respiratory Rate 18 11/06/2017 10:35 AM ENGAGEMENT MGR Oxygen Saturation 98% 11/06/2017 10:35 AM ENGAGEMENT MGR Inhaled Oxygen Concentration - - Weight 39 kg (86 lb) 11/06/2017 10:35 AM ENGAGEMENT MGR Height 167.6 cm (5' 6) 11/06/2017 10:35 AM ENGAGEMENT MGR Body Mass Index 13.88 11/06/2017 10:35 AM ENGAGEMENT MGR Plan of Treatment Health Maintenance Due Date [...] age to complete this topic Care Teams Bench Worker Apprentice Relationship Specialty Start Date End Date Mckenna Richter MD [address] [place] [address] PCP - General Internal Medicine 02/12/21
--- OUTSIDE RECORDS SUMMARY | 2025-07-15 10:17 | XMS_ITS | Clinical Summary ---
Author Organization [facility] Address [address] [place] [address] Care Team Providers Care Rodbuster Name Role Phone Mckenna Rihcter MD Primary Care Provider Source Comments [facility],non-owned Affiliates and Associated Physician Practices is amultiple site organization consisting of ambulatory clinics and hospital sitesin [place], [place], [place] and [place]. This disclosure is being madepursuant to the Care Everywhere program and may not contain all information available regarding this patient. Last updated 18.[facility] Allergies Active Allergy Reactions Criticality Noted Date [...] you. Interventions: Medical Devices Implanted Type Area Tractor Mechanic Device Identifier Shelf Expiration Date Model / Serial / Lot Dvr Crosslock Standard Plate Right Implanted:Qty: 1 on 06/26/2019 by Daylin Cutler MD at [facility] Right: Wrist [id number] / / Wire K 2mm 6in Fx Nonster Implanted:Qty: 2 on 06/26/2019 by Daylin Cutler MD at [facility] Right: Wrist [employer] [id number] / / Edison Tefl Implanted:Qty: 1 on 06/26/2019 by Daylin Cutler MD at [facility] Right: Wrist [employer] 10/18/2023 [id number] / / Screw 27.Mm X 22m Implanted:Qty: 1 on 06/26/2019 by Daylni Cutler MD at [facility] Right: Wrist [id number] / / Wire K 1.6mm Ss Fx Nonster Implanted:Qty: 3 on 06/26/2019 by Daylin Cutler MD at [facility] Right: Wrist [employer] [id number] / / Low Profile Non-Locking Screw 2.7mm, 12mm Implanted:Qty: 1 on 06/26/2019 by Daylin Cutler MD at [facility] Right: Wrist [id number] / / Screw 2.7mm 14mm Lopro Nonster Bone Lf Implanted:Qty: 1 on 06/26/2019 by Daylin Cutler MD at [facility] Right: Wrist [employer] [id number] / / Screw 2.7mm 16mm Lopro Nonster Bone Lf Implanted:Qty: 1 on 06/26/2019 by Daylin Cutler MD at [facility] Right: Wrist [employer] [id number] / / Locking Screw 2.7mm, 14mm Implanted:Qty: 1 on 06/26/2019 by Daylin Cutler MD at [facility] Right: Wrist [id number] / / Screw 2.7mm 20mm Crsslck Tpr Head 3 Ld Implanted:Qty: 4 on 06/26/2019 by Daylin Cutler MD at [facility] Right: Wrist [employer] [id number] / / Screw 2.7mm 22mm Lck Christiano Nonster Bone Implanted:Qty: 2 on 06/26/2019 by Daylin Cutler MD at [facility] Right: Wrist [employer] [id number] / / Multi-Directio nal Screw 2.7mm, 22mm Implanted:Qty: 1 on 06/26/2019 by Daylin Cutler MD at [facility] Right: Wrist [id number] / / Lens Iol 0 D +19 [place]rington Mod L Planar Acrsf - [id number] Implanted:Qty: 1 on 03/17/2020 by Rajesh Lopez MD at [facility] Right: Eye [employer] 05/25/2022 [id number] / [id number] / Acrysof. Iq Iol With Ultrasert 19.0 Implanted:Qty: 1 on 06/23/2020 by Erma Lepe MD at [facility] 03/09/2023 [id number] 19.0D / [id number] / Insurance [facility] AENA Advance Directives * Full Code (Latest Code Status on File) Date Activated Date Inactivated Comments 06/11/2019 2:02 AM 06/12/2019 3:33 PM * Full Code Date Activated Date Inactivated Comments 06/11/2019 12:19 AM 06/11/2019 2:02 AM Care Teams Rodbuster Relationship Specialty Start Date End Date Mckenna Richter MD [address], [place] [id number] PCP - General Internal Medicine 06/10/19
--- OUTSIDE RECORDS SUMMARY | 2025-07-15 10:17 | XMS_ITS | Data Portability ---
[facility] [address] [place] [address] Care Team Providers Care Plc Technician Name Role Phone MCKENNA MONTES Primary Care Provider [phone] Assessment No assessment recorded. Plan of Treatment Reminders Order Date Submit Date Provider Last Modified By Organization Details Last Modified Time Details Appointments ANY 15 2024 11:30A M Geraldine Aponte MD Not available Not available Not available ANY 2025 09:00A M Mckenna Montes MD Not available Not available Not available ANY 30 2025 10:30A M Deandre Gonzalez MD Not available Not available Not available Lab renal function panel, serum 2024 026 Monsoon [email or web address] [facility], [address] [place] [address], [address], [place], [address], 07/08/2025 13:20:23 PTH (parathyr oid hormone), intact, serum or plasma 2024 026 Monsoon Commercellick4 [facility], [address] [place] [address], [address], [place], [address], 07/08/2025 13:20:23 vitamin D, 25-hydrox y, total, serum 2024 026 Monsoon Commercellick4 [facility], [address] [place] [address], [address], [place], [address], 07/08/2025 13:20:23 lipid panel, serum 2024 025 BRANDI [facility], [address], [address], [place], [address], 06/11/2025 06:20:27 CBC w/ auto diff 2024 025 BRANDI [facility], [address] [facility] [address], [address], [place], [address], 06/11/2025 06:20:29 urinalysi s macro (dipstick ) panel, urine 2024 025 [email or web address] [facility], [address] [facility] [address], [address], [place], [address], 06/26/2025 17:48:29 CMP, serum or plasma 2024 025 BRANDI [facility], [address] [facility], [address], [place], [address], 06/11/2025 06:20:27 renal function panel, serum 2024 026 [email or web address] [facility], [address] [facility], [address], [place], [address], 01/14/2025 12:13:[address] referral 2024 025 [facility] [address] , [place], [address], 06/20/2025 15:05:21 pulmonolo gist referral 2024 025 BRANDI Mckeon MD, [address] [place], [address], 04/17/2025 10:10:03 Procedures None recorded. Surgeries None recorded. Imaging MAMMO, screening , digital, bilateral [address] [facility], [address], [place], [address], 06/03/2025 14:44:35 LDCT, chest, for lung cancer screening [address] [facility] ([facility]), [address] [place], [address], 06/24/2025 17:42:42 CT, angiogram , head, w/ contrast - Follow up cerebral aneurysms [address] [facility], [address], [place], [address], 06/20/2025 14:52:43 Medication Orders estradiol 0.01% (0.1 mg/gram) vaginal cream 2024 025 [facility] [id number] [facility], [address] [place], [address], 06/17/2025 17:13:23 Incruse Ellipta 62.5 mcg/actua tion powder for inhalatio n 2024 025 [facility] [address] [facility], [address] [place], [address], 06/17/2025 16:26:15 Wixela Inhub 250 mcg-50 mcg/dose powder for inhalatio n 2024 025 [facility] [address] [place], [address], 06/03/2025 14:48:33 albuterol sulfate HFA 90 mcg/actua tion aerosol inhaler 2024 025 [facility] [address], [address], 04/15/2025 14:21:25 Patient TargetsNo targets recorded. Patient Instructions Encounter Date Encounter Id Patient Instructions Last Modified By Organization Details Last Modified Time 04/15/2025 [id number] chronic obstructive pulmonary disease (COPD): care instructions oajao Not available 04/15/2025 14:21:25 learning about copd and how to prevent lung infections oajao Not available 04/15/2025 14:21:25 eating healthy foods: care instructions oajao Not available 04/15/2025 14:21:25 CT brain at Barium enema report from [facility] Colonoscopy and US reports as well as the last office note from Dr Cote Lab results from [facility]mon[facility] LDCT Follow up in 6 weeks for martina NEVES oajao Not available 04/15/2025 11:15:13 06/03/2025 [id number] chronic obstructive pulmonary disease (COPD): care instructions oajao Not available 06/03/2025 15:18:14 mammogram: about this test oajao Not available 06/03/2025 14:44:35 advance care planning: care instructions oajao Not available 06/03/2025 14:44:35 preventing falls : care instructions oajao Not available 06/03/2025 14:44:35 Quitting Tobacco : Care Instructions oajao Not available 06/03/2025 14:44:35 Medicare Wellnes s Preventive Checklist oajao Not available 06/03/2025 14:44:34 eating healthy foods: care instructions oajao Not available 06/03/2025 14:44:35 AD8 Dementia Screening Interview oajao Not available 06/03/2025 14:44:35 LDCT as previously ordered MMG in August, Labs Follow up in 6 months and PRN oajao Not available 06/03/2025 15:04:40 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 COPD Referring Physician: Mckenna Montes, Internal Medicine, Encounter Date: 04/15/2025 Neurologist Referral for Int racranial aneurysm Cerebral aneurysm follow up Referring Physician: Mckenna Montes, Internal Medicine, Encounter Date: 04/15/2025 Results Created Date Observation Date Name Description Value Unit Range Abnormal Flag Note LastModifiedBy Organization Detail LastModifiedTime 04/17/20 25 04/17/2025 Natri ureti c pepti de B [Mass /volu me] in Blood natriuretic peptide B [mass/volume ] in blood 63 pg/mL low: 4pg/mL high: 125pg/ mL normal Not Available Not Available 04/23/2025 01:21:16 04/17/2004/17/2025 Eosin ophil s [#/vo lume] in Blood eosinophils [#/volume] in blood 0.1 10*3/ uL low: 010*3/ uLhigh : 0.4510 *3/uL normal Not Available Not Available 04/23/2025 01:21:16 04/17/20 25 04/17/2025 IgG and IgG subcl ass panel [Mass /volu me] - Serum IgG [mass/volume ] in serum or plasma 1086 mg/dL text: 586-16 02 normal Not Available Not Available 04/23/2025 01:21:16 04/17/2004/17/2025 IgG and IgG subcl ass panel [Mass /volu me] - Serum IgG subclass 1 [mass/volume ] in serum 624 mg/dL text: 248-81 0 normal Not Available Not Available 04/23/2025 01:21:16 04/17/2004/17/2025 IgG and IgG subcl ass panel [Mass /volu me] - Serum IgG subclass 2 [mass/volume ] in serum 239 mg/dL text: 130-55 5 normal Not Available Not Available 04/23/2025 01:21:16 04/17/2004/17/2025 IgG and IgG subcl ass panel [Mass /volu me] - Serum IgG subclass 3 [mass/volume ] in serum 93 mg/dL text: 15-102 normal Not Available Not Available 04/23/2025 01:21:16 04/17/2004/17/2025 IgG and IgG subcl ass panel [Mass /volu me] - Serum IgG subclass 4 [mass/volume ] in serum 14 mg/dL text: 2-96 normal Not Available Not Available 04/23/2025 01:21:16 04/17/20 25 04/17/2025 Mycob acter ium tuber culos is stimu lated gamma inter feron [Inte rpret ation ] in Blood Quali tativ e referral lab test results COMMEN T normal Not Available Not Available 01:21:16 04/17/20 25 04/17/2025 Mycob acter ium tuber culos is stimu lated gamma inter feron [Inte rpret ation ] in Blood Quali tativ e service comment COMMEN T normal Not Available Not Available 01:21:16 04/17/20 25 04/17/2025 Mycob acter ium tuber culos is stimu lated gamma inter feron [Inte rpret ation ] in Blood Quali tativ e mycobacteriu m tuberculosis stimulated gamma interferon release by cd4+ T-cells [units/volum e] in blood 0.22 IU/mL normal Not Available Not Available 04/23/2025 01:21:16 04/17/20 25 04/17/2025 Mycob acter ium tuber culos is stimu lated gamma inter feron [Inte rpret ation ] in Blood Quali tativ e mycobacteriu m tuberculosis stimulated gamma interferon release by cd4+ and cd8+ T-cells [units/volum e] in blood 0.25 IU/mL normal Not Available Not Available 04/23/2025 01:21:16 04/17/20 25 04/17/2025 Mycob acter ium tuber culos is stimu lated gamma inter feron [Inte rpret ation ] in Blood Quali tativ e gamma interferon background [units/volum e] in blood by immunoassay 0.24 IU/mL normal Not Available Not Available 04/23/2025 01:21:16 04/17/20 25 04/17/2025 Mycob acter ium tuber culos is stimu lated gamma inter feron [Inte rpret ation ] in Blood Quali tativ e mitogen stimulated gamma interferon [units/volum e] in blood &GT;10 .00 normal Not Available Not Available 01:21:16 04/17/20 25 04/17/2025 Mycob acter ium tuber culos is stimu lated gamma inter feron [Inte rpret ation ] in Blood Quali tativ e mycobacteriu m tuberculosis stimulated gamma interferon [interpretat ion] in blood qualitative NEGATI VE text: negati ve normal Not Available Not Available 04/23/2025 01:21:16 04/17/20 25 04/17/2025 Respi rator y aller gen panel , [facility] c - Serum referral lab test results COMMEN T normal Not Available Not Available 01:21:16 04/17/20 25 04/17/2025 Respi rator y aller gen panel , [facility] c - Serum house dust mite IgE Ab [units/volum e] in serum &LT;0. 10 text: class 0 normal Not Available Not Available 04/23/2025 01:21:16 04/17/20 25 04/17/2025 Respi rator y aller gen panel , [facility] s c - Serum [place] house dust mite IgE Ab [units/volum e] in serum &LT;0. 10 text: class 0 normal Not Available Not Available 04/23/2025 01:21:16 04/17/20 25 04/17/2025 Respi rator y aller gen panel , [facility] c - Serum CAT dander IgE Ab [units/volum e] in serum &LT;0. 10 text: class 0 normal Not Available Not Available 04/23/2025 01:21:16 04/17/20 25 04/17/2025 Respi rator y aller gen panel , [facility] c - Serum dog dander IgE Ab [units/volum e] in serum &LT;0. 10 text: class 0 normal Not Available Not Available 04/23/2025 01:21:16 04/17/20 25 04/17/2025 Respi rator y aller gen panel , [facility] c - Serum cockroach IgE Ab [units/volum e] in serum &LT;0. 10 text: class 0 normal Not Available Not Available 04/23/2025 01:21:16 04/17/20 25 04/17/2025 Respi rator y aller gen panel , [facility] c - Serum bermuda grass IgE Ab [units/volum e] in serum &LT;0. 10 text: class 0 normal Not Available Not Available 04/23/2025 01:21:16 04/17/20 25 04/17/2025 Respi rator y aller gen panel , [facility] c - Serum zainab IgE Ab [units/volum e] in serum &LT;0. 10 text: class 0 normal Not Available Not Available 04/23/2025 01:21:16 04/17/20 25 04/17/2025 Respi rator y aller gen panel , [facility] s c - Serum penicillium notatum IgE Ab [units/volum e] in serum &LT;0. 10 text: class 0 normal Not Available Not Available 04/23/2025 01:21:16 04/17/20 25 04/17/2025 Respi rator y aller gen panel , [facility] c - Serum cladosporium herbarum IgE Ab [units/volum e] in serum &LT;0. 10 text: class 0 normal Not Available Not Available 04/23/2025 01:21:16 04/17/20 25 04/17/2025 Respi rator y aller gen panel , [facility] c - Serum aspergillus fumigatus IgE Ab [units/volum e] in serum &LT;0. 10 text: class 0 normal Not Available Not Available 04/23/2025 01:21:16 04/17/20 25 04/17/2025 Respi rator y aller gen panel , [facility] c - Serum alternaria alternata IgE Ab [units/volum e] in serum &LT;0. 10 text: class 0 normal Not Available Not Available 04/23/2025 01:21:16 04/17/20 25 04/17/2025 Respi rator y aller gen panel , [facility] c - Serum boxelder IgE Ab [units/volum e] in serum &LT;0. 10 text: class 0 normal Not Available Not Available 04/23/2025 01:21:16 04/17/20 25 04/17/2025 Respi rator y aller gen panel , [facility] s c - Serum mountain juniper IgE Ab [units/volum e] in serum &LT;0. 10 text: class 0 normal Not Available Not Available 04/23/2025 01:21:16 04/17/20 25 04/17/2025 Respi rator y aller gen panel , [facility] s c - Serum white oak IgE Ab [units/volum e] in serum &LT;0. 10 text: class 0 normal Not Available Not Available 04/23/2025 01:21:16 04/17/20 25 04/17/2025 Respi rator y aller gen panel , [facility] c - Serum white elm IgE Ab [units/volum e] in serum &LT;0. 10 text: class 0 normal Not Available Not Available 04/23/2025 01:21:16 04/17/20 25 04/17/2025 Respi rator y aller gen panel , [facility] c - Serum kingsley plane IgE Ab [units/volum e] in serum &LT;0. 10 text: class 0 normal Not Available Not Available 04/23/2025 01:21:16 04/17/20 25 04/17/2025 Respi rator y aller gen panel , [facility] c - Serum cottonwood IgE Ab [units/volum e] in serum &LT;0. 10 text: class 0 normal Not Available Not Available 04/23/2025 01:21:16 04/17/20 25 04/17/2025 Respi rator y aller gen panel , [facility] c - Serum white lencho IgE Ab [units/volum e] in serum &LT;0. 10 text: class 0 normal Not Available Not Available 04/23/2025 01:21:16 04/17/20 25 04/17/2025 Respi rator y aller gen panel , [facility] c - Serum walnut IgE Ab [units/volum e] in serum &LT;0. 10 text: class 0 normal Not Available Not Available 04/23/2025 01:21:16 04/17/20 25 04/17/2025 Respi rator y aller gen panel , [facility] c - Serum pecan or hickory tree IgE Ab [units/volum e] in serum &LT;0. 10 text: class 0 normal Not Available Not Available 04/23/2025 01:21:16 04/17/20 25 04/17/2025 Respi rator y aller gen panel , [facility] c - Serum white mulberry IgE Ab [units/volum e] in serum &LT;0. 10 text: class 0 normal Not Available Not Available 04/23/2025 01:21:16 04/17/20 25 04/17/2025 Respi rator y aller gen panel , [facility] c - Serum common ragweed IgE Ab [units/volum e] in serum &LT;0. 10 text: class 0 normal Not Available Not Available 04/23/2025 01:21:16 04/17/20 25 04/17/2025 Respi rator y aller gen panel , [facility] c - Serum saltwort IgE Ab [units/volum e] in serum &LT;0. 10 text: class 0 normal Not Available Not Available 04/23/2025 01:21:16 04/17/20 25 04/17/2025 Respi rator y aller gen panel , [facility] c - Serum common pigweed IgE Ab [units/volum e] in serum &LT;0. 10 text: class 0 normal Not Available Not Available 04/23/2025 01:21:16 04/17/20 25 04/17/2025 Respi rator y aller gen panel , [facility] c - Serum rough covarrubias elder IgE Ab [units/volum e] in serum &LT;0. 10 text: class 0 normal Not Available Not Available 04/23/2025 01:21:16 04/17/20 25 04/17/2025 Respi rator y aller gen panel , [facility] c - Serum mouse urine proteins IgE Ab [units/volum e] in serum &LT;0. 10 text: class 0 normal Not Available Not Available 04/23/2025 01:21:16 04/17/20 25 04/17/2025 Respi rator y aller gen panel , [facility] c - Serum IgE [units/volum e] in serum or plasma 8 IU/mL text: 6-495 normal Not Available Not Available 04/23/2025 01:21:16 04/17/20 25 04/17/2025 Alpha 1 antit rypsi n pheno type [Inte rpret ation ] in Serum or Plasm a alpha 1 antitrypsin [mass/volume ] in serum or plasma 151 mg/dL text: 101-18 7 normal Not Available Not Available 04/23/2025 01:21:15 04/17/2004/17/2025 Alpha 1 antit rypsi n pheno type [Inte rpret ation ] in Serum or Plasm a alpha 1 antitrypsin phenotype [identifier] in serum or plasma by immunofixati on MM normal Not Available Not Available 03/27 01:21:15 06/10/2006/11/2025 LIPID PANEL cholesterol, total 154 mg/dL 100-19 9 Not Available [facility] ([facility]) [address] [place], [address], 06/11/2025 06:20:27 06/10/20 25 06/11/2025 LIPID PANEL triglyceride s 64 mg/dL 0-149 Not Available [facility] ([facility]) [address] [place], [address], 06/11/2025 06:20:27 06/10/20 25 06/11/2025 LIPID PANEL HDL cholesterol 57 mg/dL >39 Not Available [facility] ([facility]) [address] [place], [address], 06/11/2025 06:20:27 06/10/20 25 06/11/2025 LIPID PANEL VLDL cholesterol dave 13 mg/dL 5-40 Not Available [facility] ([facility]) [address] [place], [address], 06/11/2025 06:20:27 06/10/20 25 06/11/2025 LIPID PANEL LDL chol calc ([facility]) 84 mg/dL 0-99 Not Available [facility] ([facility]) [address] [place], [address], 06/11/2025 06:20:27 06/10/20 25 06/10/2025 CMP14 +EGFR glucose 83 mg/dL 70-99 Not Available [facility] ([facility]) [address] [facility], [address], 06/11/2025 06:20:27 06/10/20 25 06/10/2025 CMP14 +EGFR BUN 9 mg/dL 8-27 Not Available [facility] ([facility]) [address] [facility], [place], [address], 06/11/2025 06:20:27 06/10/20 25 06/10/2025 CMP14 +EGFR creatinine 1.10 mg/dL 0.57-1 .00 above high normal Not Available [facility] ([facility]) [address] [place], [address], 06/11/2025 06:20:27 06/10/20 25 06/10/2025 CMP14 +EGFR eGFR 56 mL/mi n/1.7 3 >59 below low normal Not Available [facility] ([facility]) [address] [place], [address], 06/11/2025 06:20:27 06/10/20 25 06/10/2025 CMP14 +EGFR BUN/creatini ne ratio 8 12-28 below low normal Not Available [facility] ([facility]) [address] [facility], [place], [address], 06/11/2025 06:20:27 06/10/20 25 06/10/2025 CMP14 +EGFR sodium 141 mmol/ L 134-14 4 Not Available [facility] ([facility]) [address] [place], [address], 06/11/2025 06:20:27 06/10/20 25 06/10/2025 CMP14 +EGFR potassium 5.2 mmol/ L 3.5-5. 2 Not Available [facility] ([facility]) [address] [place], [address], 06/11/2025 06:20:27 06/10/20 25 06/10/2025 CMP14 +EGFR chloride 100 mmol/ L 96-106 Not Available [facility] ([facility]) [address] [facility] [place], [address], 06/11/2025 06:20:27 06/10/20 25 06/10/2025 CMP14 +EGFR carbon dioxide, total 26 mmol/ L 20-29 Not Available [facility] ([facility]) [address] [facility] [place], [address], 06/11/2025 06:20:27 06/10/20 25 06/10/2025 CMP14 +EGFR calcium 9.7 mg/dL 8.7-10 .3 Not Available [facility] ([facility]) [address] [facility] [place], [address], 06/11/2025 06:20:27 06/10/20 25 06/10/2025 CMP14 +EGFR protein, total 6.7 g/dL 6.0-8. 5 Not Available [facility] ([facility]) [address] [facility] [place], [address], 06/11/2025 06:20:27 06/10/20 25 06/10/2025 CMP14 +EGFR albumin 4.4 g/dL 3.9-4. 9 Not Available [facility] ([facility]) [address] [facility] [place], [address], 06/11/2025 06:20:27 06/10/20 25 06/10/2025 CMP14 +EGFR globulin, total 2.3 g/dL 1.5-4. 5 Not Available [facility] ([facility]) [address] [facility] [place], [address], 06/11/2025 06:20:27 06/10/20 25 06/10/2025 CMP14 +EGFR bilirubin, total 0.3 mg/dL 0.0-1. 2 Not Available [facility] ([facility]) [address] [facility] [place], [address], 06/11/2025 06:20:27 06/10/2006/10/2025 CMP14 +EGFR alkaline phosphatase 52 IU/L 49-135 Ple ase note refer ence inter augusto patiño e Not Available [facility] ([facility]) [address] [facility], [place], [address], 06/11/2025 06:20:27 06/10/2006/10/2025 CMP14 +EGFR AST (SGOT) 33 IU/L 0-40 Not Available [facility] ([facility]) [address] [facility], [place], [address], 06/11/2025 06:20:27 06/10/2006/10/2025 CMP14 +EGFR ALT (SGPT) 20 IU/L 0-32 Not Available [facility] ([facility]) [address] [facility], [place], [address], 06/11/2025 06:20:27 06/10/2006/10/2025 UNABL E TO VOID unable to void Commen t Patie nt unabl e to void. Urine to be colle cted at a later date. Not Available [facility] ([facility]) [address] [facility], [place], [address], 06/11/2025 06:20:28 06/10/2006/10/2025 CBC WITH DIFFE RENTI AL/PL ATELE T WBC 9.3 x10e3 /uL 3.4-10 .8 Not Available [facility] ([facility]) [address] [place], [address], 06/11/2025 06:20:28 06/10/2006/10/2025 CBC WITH DIFFE RENTI AL/PL ATELE T RBC 4.34 x10e6 /uL 3.77-5 .28 Not Available [facility] ([facility]) [address] [place], [address], 06/11/2025 06:20:28 06/10/2006/10/2025 CBC WITH DIFFE RENTI AL/PL ATELE T hemoglobin 13.4 g/dL 11.1-1 5.9 Not Available [facility] ([facility]) [address] [place], [address], 06/11/2025 06:20:28 06/10/2006/10/2025 CBC WITH DIFFE RENTI AL/PL ATELE T hematocrit 41.3 % 34.0-4 6.6 Not Available [facility] ([facility]) [address] [place], [address], 06/11/2025 06:20:28 06/10/2006/10/2025 CBC WITH DIFFE RENTI AL/PL ATELE T MCV 95 fL 79-97 Not Available [facility] ([facility]) [address] [place], [address], 06/11/2025 06:20:28 06/10/2006/10/2025 CBC WITH DIFFE RENTI AL/PL ATELE T MCH 30.9 pg 26.6-3 3.0 Not Available [facility] ([facility]) [address] [place], [address], 06/11/2025 06:20:28 06/10/2006/10/2025 CBC WITH DIFFE RENTI AL/PL ATELE T MCHC 32.4 g/dL 31.5-3 5.7 Not Available [facility] ([facility]) [address] [place], [address], 06/11/2025 06:20:28 06/10/2006/10/2025 CBC WITH DIFFE RENTI AL/PL ATELE T RDW 11.4 % 11.7-1 5.4 below low normal Not Available [facility] ([facility]) [address] [place], [address], 06/11/2025 06:20:28 06/10/20 25 06/10/2025 CBC WITH DIFFE RENTI AL/PL ATELE T platelets 251 x10e3 /uL 150-45 0 Not Available [facility] ([facility]) [address] [facility], [place], [address], 06/11/2025 06:20:28 06/10/20 25 06/10/2025 CBC WITH DIFFE RENTI AL/PL ATELE T neutrophils 53 % notest ab. Not Available [facility] ([facility]) [address] [facility], [place], [address], 06/11/2025 06:20:28 06/10/20 25 06/10/2025 CBC WITH DIFFE RENTI AL/PL ATELE T lymphs 32 % notest ab. Not Available [facility] ([facility]) [address] [facility], [place], [address], 06/11/2025 06:20:28 06/10/20 25 06/10/2025 CBC WITH DIFFE RENTI AL/PL ATELE T monocytes 12 % notest ab. Not Available [facility] ([facility]) [address] [facility], [place], [address], 06/11/2025 06:20:28 06/10/20 25 06/10/2025 CBC WITH DIFFE RENTI AL/PL ATELE T eos 2 % notest ab. Not Available [facility] ([facility]) [address] [facility], [place], [address], 06/11/2025 06:20:28 06/10/20 25 06/10/2025 CBC WITH DIFFE RENTI AL/PL ATELE T basos 1 % notest ab. Not Available [facility] ([facility]) [address] [facility], [place], [address], 06/11/2025 06:20:28 06/10/20 25 06/10/2025 CBC WITH DIFFE RENTI AL/PL ATELE T neutrophils (absolute) 5.0 x10e3 /uL 1.4-7. 0 Not Available [facility] ([facility]) [address] [facility], [place], [address], 06/11/2025 06:20:28 06/10/20 25 06/10/2025 CBC WITH DIFFE RENTI AL/PL ATELE T lymphs (absolute) 3.0 x10e3 /uL 0.7-3. 1 Not Available [facility] ([facility]) [address] [facility], [place], [address], 06/11/2025 06:20:28 06/10/20 25 06/10/2025 CBC WITH DIFFE RENTI AL/PL ATELE T monocytes(ab solute) 1.1 x10e3 /uL 0.1-0. 9 above high normal Not Available [facility] ([facility]) [address] [facility] [address], [place], [address], 06/11/2025 06:20:28 06/10/20 25 06/10/2025 CBC WITH DIFFE RENTI AL/PL ATELE T eos (absolute) 0.2 x10e3 /uL 0.0-0. 4 Not Available [facility] ([facility]) [address] [facility] [address], [place], [address], 06/11/2025 06:20:28 06/10/20 25 06/10/2025 CBC WITH DIFFE RENTI AL/PL ATELE T baso (absolute) 0.1 x10e3 /uL 0.0-0. 2 Not Available [facility] ([facility]) [address] [place], [address], 06/11/2025 06:20:28 06/10/2006/10/2025 CBC WITH DIFFE RENTI AL/PL ATELE T immature granulocytes 0 % notest ab. Not Available [facility] ([facility]) [address] [facility] [address], [place], [address], 06/11/2025 06:20:28 06/10/20 25 06/10/2025 CBC WITH DIFFE RENTI AL/PL ATELE T immature grans (abs) 0.0 x10e3 /uL 0.0-0. 1 Not Available [facility] ([facility]) [address], [place], [address], 06/11/2025 06:20:28 03/26/20 25 03/26/2025 DEXA No observ ation record ed. [facility] [address], [place], [address], 04/15/2025 10:32:38 06/24/20 25 06/24/2025 LDCT, chest , for lung cance r scree cathy No observ ation record ed. [facility] [address], [place], [address], 07/03/2025 14:39:14 07/10/20 25 07/10/2025 six min walk test w/ O2 titra tion* No observ ation record ed. [facility] [place] [address], [place], [address], 07/11/2025 12:05:06 Result Notes None recorded. Problems Name Problem SNOMED Code Status Onset Date Resolution Date Notes Provider Name and Address Organization Details Recorded Time Chest pain 14722803 Active Not Available [facility] 4 08:57:11 Pain in right foot 5997564614104 07 Active Not Available [facility] 4 08:57:11 Influenza vaccinatio n declined 765914409 Active 2017 Not Available [facility] 4 08:57:11 Colon cancer screening declined 5300311207424 9 Active 2017 Not Available [facility] 4 08:57:11 History of tobacco use 6370753599861 Active 2017 Not Available [facility] 4 08:57:10 Depressive disorder 38803921 Active 2017 Not Available [facility] 4 08:57:11 Pulmonary emphysema 50208078 Active 2017 Not Available [facility] 4 08:57:11 Gastroesop hageal reflux disease 528977825 Active 2017 Not Available [facility] 4 08:57:10 Disorder of lipid metabolism 372580494 Active 2018 Not Available [facility] 4 08:57:10 History of exposure to second hand smoke 100707785 Active 2018 Not Available [facility] 4 08:57:11 Tobacco dependence in remission 302281266 Active 2018 Not Available 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 4 08:57:10 Magnetic resonance imaging of cervical spine abnormal 236923606 Active 2018 Not Available [facility] 4 08:57:11 History of total hysterecto my 805462036 Active 2019 Not Available [facility] 4 08:57:11 Colorectal cancer detected by DNA-based stool screening 435779984 Active 2019 Not [address] [facility] 4 08:57:11 Postmenopa usal osteoporos is 618671061 Active 2020 Not [address] [facility] 4 08:57:10 Cardiac pacemaker in situ 851091284 Active 2020 Not Available [facility] 4 08:57:11 History of placement of stent for coronary artery disease 534928884 Active 2020 Not Available [facility] 4 08:57:11 Adrenal adenoma 753606907 Active 2021 Not Available [facility] 4 08:57:10 Exocrine pancreatic insufficie ncy 54052520 Active 2021 Not Available [facility] 4 08:57:11 History of syncope 1153108060615 09 Active 2022 Not Available [facility] 4 08:57:11 Simple renal cyst 35398268 Active 2023 Mckenna Montes MD Attn: Accounting ,[address] [facility], [place], [address] , [place] [facility] 4 10:54:22 Hyperthyro idism 90035410 Active 2024 Mckenna Montes MD Attn: Accounting ,[address] [facility], [place], [address] , [place] [facility] 5 10:33:14 Intracrani al aneurysm 116387707 Active 2024 Mckenna Montes MD Attn: Accounting ,[address] [facility], [place], [address] , [place] [facility] 5 10:56:42 Hyperchole sterolemia 51360754 Active 2024 Mckenna Montes MD Attn: Accounting ,[address] [facility], [place], [address] , [place] [facility] 5 15:03:49 Problem Notes None recorded. Procedures Surgical History Date Name Laterality Status Provider Name and Address Organization Details Recorded Time 2023 esophagogastroduodenoscopy completed Bree Cortes MD Attn: Travon santiago,[address] [facility], [place], [address], [place] [facility] 4 10:06:27 2019 Colonoscopy completed Mckenna Montes MD Attn: Travon santiago,[address] [facility], [place], [address], [place] [facility] 0 16:25:40 2018 Most Recent Mammogram completed Kulwinder Borja MA [place] [facility] 9 11:35:12 2017 Total hysterectomy completed JACINTA HAIDER Attn: Travon santiago,[address] [facility], [place], [address], [place] [facility] 3 12:13:45 Dilation and Curettage completed Hira Restrepo [place] [facility] 8 10:45:33 laparoscopy completed Gianna Restrepo [place] [facility] 8 10:45:50 Pacemaker completed Gianna Restrepo DILIP [place] - [facility] 1 09:57:32 Imaging Results None recorded. Procedure Notes None recorded. Medical Equipment None Reported. Allergies Allergen ID Allergen Name Allergen Category Reaction Reaction Severity Criticality Documentation Date Start Date Code Code System Note Provider Name and Address Organization Details Recorded Time 526217 codeine medicatio n Not available Not available Not available 04/18/2022 2670 RxNorm Other react ions and sever ities : 'Adve rse react ion to subst ance' . Mckenna Montes MD Attn: Travon santiago,[address] [facility], [place], [address], [facility] 3 10:38:11 [id number] hydrocodo ne Not available Not available Not available Not available 07/15/2025 5489 RxNorm Not Available brandi - External Data Service - prod 5 11:00:05 Medications Name Sig Start Date Stop Date Status Note LastModified by Organization Details LastModified Time multivita min tablet Take 1 tablet every day by oral route. 2019 active Not Available Not Available Not Avai lable atorvasta tin 80 mg tablet TAKE 1 TABLET BY MOUTH EVERY DAY TO LOWER CHOLESTE ROL active Not Available Not Available No t Available atorvasta tin 10 mg tablet Take 1 tablet every day by oral route. 05/04 completed Not Available Not Available Not Available azithromy ken 250 mg tablet TAKE 2 TABLETS (500 MG) BY ORAL ROUTE ONCE DAILY FOR 1 DAY THEN 1 TABLET (250 MG) BY ORAL ROUTE ONCE DAILY FOR 4 DAYS 03/26 completed Not Available Not Available Not Available hydrocodo ne 5 mg-acetam inophen 325 mg tablet 04/30 completed Not Available Not Available Not Available prednison e 20 mg tablet Take 2 tablets every day by oral route as directed for 5 days. 03/26 completed Not Available Not Available Not Available alendrona te 70 mg tablet Take 1 tablet every week by oral route for 28 days. 04/30 completed Not Available Not Available Not Available Tylenol Arthritis Pain 650 mg tablet,ex tended release Take 2 tablets every 8 hours by oral route as needed for 30 days. 12/25 completed Not Available Not Available Not Available clopidogr el 75 mg tablet TAKE 1 TABLET BY MOUTH EVERY DAY TO PREVENT BLOOD CLOTS 07/17 completed I am not on that anymore, the doctor took me off of it 07/17/20 24 Not Available Not Available Not Available sulfameth oxazole 800 mg-trimet hoprim 160 mg tablet TAKE 1 TABLET BY MOUTH EVERY 12 HOURS DIRECTED FOR 3 DAYS FOR URINARY TRACT INFECTIO N 06/04 completed Not Available Not Available Not Available omeprazol e 40 mg capsule,d elayed release Take 1 capsule every day by oral route. 10/23 completed Not Available Not Available Not Available aspirin 81 mg tablet,de layed release TAKE 1 TABLET BY MOUTH EVERY DAY TO PREVENT BLOOD CLOTS active Not Available Not Available No t Available tramadol 50 mg tablet Take 2 tablets every 8 hours by oral route as needed for 5 days. 04/30 completed Not Available Not Available Not Available ketorolac 30 mg/mL (1 mL) injection solution Inject 1 mL by intramus cular route as directed for 1 day. 04/30 completed Not Available Not Available Not Available ketorolac 10 mg tablet Take 1 tablet every 6 hours by oral route with meals for 5 days. 04/30 completed Not Available Not Available Not Available prednisol one acetate 1 % eye drops,norberto pension 12/25 completed Not Available Not Available Not Available Proctozon e-HC 2.5 % topical cream perineal applicato r 12/22 completed Not Available Not Available Not Available pantopraz ole 40 mg tablet,de layed release TAKE 1 TABLET BY MOUTH EVERY DAY active Not Available Not Available No t Available promethaz ine 25 mg tablet 09/11 completed Not Available Not Available Not Available megestrol 40 mg tablet TAKE 1 TABLET BY MOUTH THREE TIMES A DAY active Not Available Not Available No t Available aspirin 81 mg chewable tablet Chew 1 tablet every day by oral route as directed for 30 days. 09/06 completed Not Available Not Available Not Available bisacodyl 5 mg tablet,de layed release 05/04 completed Not Available Not Available Not Available metoprolo l succinate ER 25 mg tablet,ex tended release 24 hr TAKE 1/2 TABLET BY MOUTH TWICE DAILY FOR BLOOD PRESSURE 10/17 completed Duplicat e Not Available Not Available Not Available polyethyl cisco glycol 3350 17 gram/dose oral powder MIX BOTTLE WITH 64OZ OF GATORADE 09/11 completed Not Available Not Available Not Available estradiol 0.01% (0.1 mg/gram) vaginal cream PLEASE SEE ATTACHED FOR DETAILED DIRECTIO NS active Not Available Not Available No t Available albuterol sulfate HFA 90 mcg/actua tion aerosol inhaler INHALE 1 PUFF BY MOUTH EVERY 4 HOURS NEEDED active Not Available Not Available No t Available dexametha sone 0.5 mg tablet 12/22 completed Not Available Not Available Not Available Premarin 0.625 mg/gram vaginal cream APPLY 0.5MG VAGINALL Y ONCE WEEKLY 09/11 completed Not Available Not Available Not Available rosuvasta tin 20 mg tablet TAKE 1 TABLET(S ) EVERY DAY BY ORAL ROUTE DIRECTED ( TO LOWER CHOLESTE ROL ) 04/30 completed Not Available Not Available Not Available metoprolo l tartrate 25 mg tablet TAKE 1/2 TABLET BY MOUTH TWICE A DAY FOR BLOOD PRESSURE active Not Available Not Available No t Available Spiriva with HandiHale r 18 mcg and inhalatio n capsules Inhale 1 capsule every day by inhalati on route as directed for 30 days. 03/26 completed Pt states she stopped taking this as it was causing pain in her chest. Not Available Not Available Not Available Atrovent HFA 17 mcg/actua tion aerosol inhaler Inhale 2 puffs 4 times a day by inhalati on route as directed for 30 days. 04/30 completed I have not been using it, they have been making my throat really sore Not Available Not Available Not Available EasiVent [employer] Chamber USE with inhaler active Not Available Not Available No t Available Tylenol 1000 mg po Q6 hours active Not Available Not Available No t Available Zyrtec 04/22 completed Not Available Not Available Not Available Mucinex 04/22 completed Not Available Not Available Not Available budesonid e-formote rol HFA 160 mcg-4.5 mcg/actua tion aerosol inhaler INHALE 2 PUFFS INTO THE LUNGS TWICE A DAY DIRECTED FOR 30 DAYS 04/15 completed I don't like the way my throat feels Not Available Not Available Not Available Calcium with Vitamin D 600 mg-10 mcg (400 unit) tablet Take 1 tablet twice a day by oral route. 01/14 completed STOPPED SEC TO HIGH CALCIUM LEVEL Not Available Not Available Not Available Brilinta 90 mg tablet Take 0 mg by oral route. 12/20 completed Not Available Not Available Not Available Incruse Ellipta 62.5 mcg/actua tion powder for inhalatio n Inhale 1 puff every day by inhalati on route as directed for 30 days, for COPD. 06/17 completed Not Available Not Available Not Available Tymlos 80 mcg/dose (3,120 mcg/1.56 mL) subcutane ous pen injector Inject 80 microgra ms every day by sub-q route for 30 days. 04/15 completed They gave me Prolia Not Available Not Available Not Available Zenpep 40,000 unit-126, 000 unit-168, 000 unit capsule,d elayed release TAKE ONE CAPSULE BY MOUTH THREE TIMES DAILY BEFORE MEALS 09/04 completed I quit seeing the endocrin ologist, but I have an appointm ent next week Not Available Not Available Not Available Wixela Inhub 250 mcg-50 mcg/dose powder for inhalatio n Inhale 1 puff twice a day by inhalati on route around the clock for 30 days, for COPD. 06/03 completed I am on Breztri 06/03/2025 Not Available Not Available Not Available BD Geri 2nd Gen Pen Needle 32 gauge x USE TO INJECT ONCE DAILY active Not Available Not Available No t Available [facility] Aerospher e 160 mcg-9mcg- 4.8mcg/ac tuation HFA aerosol inhaler Inhale 2 puffs twice a day by inhalati on route. active Not Available Not Available No t Available Sutab 1.479-0.1 88-0.225 gram tablet 09/11 completed Not Available Not Available Not Available Daily-Vit e (with folic acid) 400 mcg tablet TAKE 1 TABLET BY MOUTH EVERY DAY FOR VITAMIN DEFICIEN CY active Not Available Not Available No t Available Vazalore 81 mg capsule medicati on:aspir in 81 mg capsule dose:0.0 route:P O freque ncy: 12/20 completed Not Available Not Available Not Available Vitals Date Recorded Body height Pain severity - 0-10 verbal numeric rating [Score] - Reported Respiratory rate Body mass index (BMI) Body weight Heart rate Oxygen saturation Oxygen saturation in Arterial blood by Pulse oximetry Systolic And Diastolic Provider Name and Address Organization Details Last Updated DateTime 5 167.64 cm 0 16 /min 15.1 kg/m2 90794.2 5 g 89 /min 95 % 95 % 149/99 mm[Hg] Celena Berman MA [facility] 5 11:43:49 Date Recorded Body height Body mass index (BMI) Body weight Oxygen saturation Oxygen saturation in Arterial blood by Pulse oximetry Heart rate Respiratory rate Body temperature Systolic And Diastolic Provider Name and Address Organization Details Last Updated DateTime 5 167.64 cm 15.9 kg/m2 89150.1 3 g 98 % 98 % 86 /min 14 /min 97.4 [degF] 122/84 mm[Hg] Gianna Restrepo MA [facility] 5 10:16:28 Date Recorded Body height Body mass index (BMI) Body weight Heart rate Oxygen saturation Oxygen saturation in Arterial blood by Pulse oximetry Respiratory rate Body temperature Systolic And Diastolic Provider Name and Address Organization Details Last Updated DateTime 5 167.64 cm 16.8 kg/m2 09231.6 1 g 82 /min 97 % 97 % 14 /min 98.2 [degF] 130/84 mm[Hg] Gianna Restrepo MA [facility] 5 14:39:01 Date Recorded Body height Body mass index (BMI) Body weight Oxygen saturation Oxygen saturation in Arterial blood by Pulse oximetry Heart rate Respiratory rate Body temperature Systolic And Diastolic Provider Name and Address Organization Details Last Updated DateTime 5 167.64 cm 16.6 kg/m2 40252.0 1 g 97 % 97 % 78 /min 14 /min 98.2 [degF] 128/82 mm[Hg] Chelsey Tomas MA [facility] 5 16:28:08 Date Recorded Body height Pain severity - 0-10 verbal numeric rating [Score] - Reported Heart rate Oxygen saturation Oxygen saturation in Arterial blood by Pulse oximetry Body temperature Body mass index (BMI) Body weight Systolic And Diastolic Provider Name and Address Organization Details Last Updated DateTime 5 167.64 cm 0 80 /min 79 % 79 % 98.6 [degF] 16.8 kg/m2 51940.3 2 g 149/83 mm[Hg] Didier Hendricks [place] - [facility] 5 12:37:41 Social History Question Answer Notes LastModified by Organizat ion Details LastModified Time Tobacco Smoking Status Former Smoker Stopped 05/2017 Mckenna Montes MD Attn: Accounting,[address] [facility], [place], [address], [place] [facility] 09/10/2018 10:56:37 Do You Have An Advance Directive? No Information not available 05/06/2019 How Many Years Have You Consumed Alcohol? 14 Information not available 06/03/2025 Are You Blind Or Do You Have Difficulty Seeing? No Information not available 12/22/2020 What Is Your Level Of Caffeine Consumption? Heavy Information not available 09/10/2018 How Much Tobacco Do You Chew? None Information not available 09/10/2018 In The 14 Days Before Symptom Onset, Have You Had Close Contact With A Laboratory-confir med COVID-19 While That Case Was Ill? No Information not available 01/14/2025 In The 14 Days Before Symptom Onset, Have You Had Close Contact With A Person Who Is Under Investigation For COVID-19 While That Person Was Ill? No Information not available 01/14/2025 Have You Been To An Area Known To Be High Risk For COVID-19? Yes Information not available 12/22/2020 Are You Deaf Or Do You Have Serious Difficulty Hearing? No Information not available 12/22/2020 What Type Of Diet Are You Following? REGULAR Information not available 09/10/2018 Which Illicit Or Recreational Drugs Have You Used? Denies Information not available 05/06/2019 Education 12 Information no t available 05/06/2019 Are There Any Guns Present In Your Home? No Information not available 09/10/2018 Hard Of Hearing Or Deaf In One Or Both Ears? No Information not available 09/10/2018 Legally Blind In One Or Both Eyes? No Information no t available 09/10/2018 Marital Status Informatio n not available 09/10/2018 Do You Have A Medical Power Of Legal Stenographer? No Information not available 01/14/2025 What Was The Date Of Your Most Recent Tobacco Screening? 07/08/2025 [email or web address] Information not available 07/08/2025 What Is Your Current Pack Years? 30ormorepa [email or web address] Information not available 04/18/2022 Performs Monthly Self-breast Exam? No Information no t available 09/10/2018 What Is Your Relationship Status? Information not available 01/14/2025 Seat Belts Used Routinely Yes Information not available 09/10/2018 Smoke Alarm In Home Yes Information not available 09/10/2018 Do You Have Smoke And Carbon Monoxide Detectors In Your Home? No Information not available 06/03/2025 At What Age Did You Start Smoking Tobacco? 12 Information not available 04/18/2022 How Much Tobacco Do You Smoke? No Information not available 03/26/2019 General Stress Level Medium Information not available 05/06/2019 Do You Use Sunscreen Routinely? Yes Information not available 05/06/2019 Has Tobacco Cessation Counseling Been Provided? No Information not available 01/23/2019 On What Date Was Tobacco Cessation Counseling Provided? 06/17/2025 Dani Answered No To The Tobacco Cessation Counseling Provided Question On 01/23/2019. [email or web address] Information not available 06/17/2025 How Many Years Have You Smoked Tobacco? 40 Information not available 09/10/2018 Sex: Female Functional Status Question Answer Note LastModified by Organizat ion Details LastModified Time Do you use any illicit or recreational drugs? No Information not available 03/05/2024 Do you or have you ever used any other forms of tobacco or nicotine? No Information not available 04/18/2022 What is your level of alcohol consumption? None Information not available 06/03/2025 Do you or have you ever used smokeless tobacco? Never used smokeless tobacco Information not available 05/06/2019 Are you currently employed? Yes Information not available 12/22/2020 Are you able to care for yourself independently? 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 [facility] Information not available 05/06/2019 What is your exercise level? Occasional Information not available 09/10/2018 Mental Status None recorded. Family History Relationship Description Onset Age of this Age Resolved Age Notes LastModified by Organization Details LastModified Time Mother Diabetes mellitus [email or web address] Not available 2017 10:44:55 Mother Disease of liver [email or web address] Not available 2017 10:45:02 Father Malignant neoplasm of colon [email or web address] Not available 2017 10:45:09 Medical History Condition Response Coronary Artery Disease Y Other N Atrial Fibrillation N High Blood Pressure N Kidney or Bladder Problems N Thyroid Problems N GI Problems N Depression N COPD N Blood Clots N Skin Problems N Anemia N Heart Attack (AR) Y Anxiety Disorder N Diabetes N Muscle, Joint, or Bone Problems Y Seizures/Epilepsy N Acid Reflux (GERD) Y Cancer N Stroke N Asthma N Allergies N High Cholesterol N Hepatitis N Liver Disease N Headaches N Heart Failure N Osteoporosis N Gynecological History Statement/Question Response On BCP's at Conception? N STIs/STDs N HPV Vaccine N Current Control Method Hysterectom y Most Recent Mammogram 04/29/2019 Age at First Child 17 If Post Menopausal, Age at Menopause 42 Sexually Active? N Date of Last Pap Smear Sexual Problems? Y LMP Approximate Obstetrics History GPAL:G 2 P 2 0 0 2 Type Value Multiple Births 0 Full Term 2 Induced 0 Spontaneous 0 Premature 0 Living 2 Ectopics 0 Total 2 Immunizations Vaccine Type Date Status Note Provider Calvin segundo and Address Organization Details Recorded Time tetanus toxoid, unspecified formulation 3 completed Mckenna Montes MD Attn: Accounting,[address] [place], [address], [facility] 10/09/2023 06:18:48 Influenza, split virus, quadrivalent, preservative 09/30/201 9 completed Mckenna Montes MD Attn: Accounting,[address] [facility], [place], [place], [address] [place] [address], [place] [facility] 10/09/2023 06:18:48 COVID-19 vaccine, vector-nr, [id number], PF, 0.5 mL 1 completed Mckenna Montes MD Attn: Accounting,[address] [facility], [place], [place], [address] [place] [address], [place] [facility] 10/09/2023 06:18:48 COVID-19, mRNA, LNP-S, PF, 30 mcg/0.3 mL dose 1 completed Mckenna Montes MD Attn: Accounting,[address] [facility], [place], [place], [address] [place] [address], [place] [facility] 10/09/2023 06:18:48 COVID-19, mRNA, LNP-S, PF, 30 mcg/0.3 mL dose 2 completed Mckenna Montes MD Attn: Accounting,[address] [facility], [place], [place], [address] [place] [address], [place] [facility] 10/09/2023 06:18:48 influenza, unspecified formulation 2 completed Mckenna Montes MD Attn: Accounting,[address] [facility], [place], [place], [address] [place] [address], [place] [facility] 10/09/2023 06:18:48 COVID-19, mRNA, LNP-S, bivalent, PF, 30 mcg/0.3 mL dose 2 completed Mckenna Montes MD Attn: Accounting,[address] [facility], [place], [address] [place] [address], [place] [facility] 10/09/2023 06:18:48 COVID-19, mRNA, LNP-S, PF, 30 mcg/0.3 mL dose, cheryl-sucrose 2 completed Mckenna Montes MD Attn: Accounting,[address] [facility], [place], [address] [place] [address], [place] [facility] 10/09/2023 06:18:48 COVID-19, mRNA, LNP-S, PF, 30 mcg/0.3 mL dose 1 completed Mckenna Montes MD Attn: Accounting,[address] [place], [place], [address] [place] [address], [place] [facility] 10/09/2023 06:18:48 Influenza, recombinant, quadrivalent, PF 2 completed Mckenna Montes MD Attn: Accounting,[address] [place], [place], [address] [place] [address], [place] [facility] 10/09/2023 06:18:48 COVID-19, mRNA, LNP-S, PF, 50 mcg/0.5 mL 3 completed Mckenna Montes MD Attn: Accounting,[address] [place], [place], [address] [place] [address], [place] [facility] 10/09/2023 06:18:48 Influenza, split virus, quadrivalent, PF 3 completed Mckenna Montes MD Attn: Accounting,[address] [place], [place], [address] [place] [address], [place] [facility] 10/09/2023 06:18:48 RSV, recombinant, protein subunit RSVpreF, adjuvant reconstituted, 0.5 mL, PF 4 completed DILIP [place], [place] [facility] 03/04/2024 17:11:18 COVID-19, mRNA, LNP-S, PF, cheryl-sucrose, 30 mcg/0.3 mL 4 completed Gianna Restrepo [place] null, [place] [facility] 09/11/2024 10:04:02 Influenza, split virus, trivalent, PF 4 completed Gianna Restrepo [place] [facility] 09/11/2024 10:03:31 Pneumococcal conjugate PCV20, polysaccharide [id number] conjugate, adjuvant, PF 4 completed Mckenna Montes MD Attn: Accounting,[address] [place], [place], [address] [place] [address], [place] [facility] 04/15/2025 10:31:04 Tdap 4 completed DILIP Thomas, [place] - [facility] 09/11/2024 10:04:02 Influenza, split virus, quadrivalent, preservative 0 completed DILIP Thomas, [place] - [facility] 07/16/2020 15:49:08 Influenza, split virus, quadrivalent, preservative 1 completed DILIP Thomas, [place] - [facility] 07/26/2021 17:45:03 pneumococcal polysaccharide PPV23 2 completed DILIP Thomas, [place] - [facility] 04/18/2022 12:18:18 Past Encounters Encounter ID Performer Location Encounter Start Date Encounter Closed Date Diagnosis/Indication Diagnosis SNOMED-CT Code Diagnosis ICD10 Code Diagnosis IMO Codes Diagnosis Note [id number] Mckenna Montes MD [facility] (Adult Med) [address] [place] [address] [id number] 0 09/10/2018 10:22:41 09/10/2018 11:33:59 Screening for malignant neoplasm of breast 583126433 Z12.31 Adult [facility] examination 068007358 Z00.00 Gastroesop hageal reflux disease 563832116 K21.9 Intermitte nt use of Omeprazole , she did not want this refilled Pulmonary emphysema 8743 3001 J43.9 Influenza vaccination declined 470275214 Z28.21 Colon canc er screening declined 1734772416 9109 Z53.20 She has failed the prep twice, she is unwilling to try again. Depressive disorder 3548 9007 F32.9 She is not keen on therapy or medication s at this time. 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.9 Discussed History of tobacco use 0939531735 103 Z87.891 Pulmonary emphysema 8743 3001 J43.9 [id number] MD Remington Talamantes (Adult Med) [address] [place] [address] [phone] 0 01/23/2019 16:59:51 01/23/2019 17:35:31 Chronic obstructive pulmonary disease 30667926 J44.9 Migraine 83619227 G43.90 9 Influenza vaccination declined 293528095 Z28.21 Disorder o f lipid metabolism 463494604 E78.9 Discussed Pulmonary emphysema 8743 3001 J43.9 History of exposure to second hand smoke 463013253 Z77.22 Screening for disorder 165964744 Z13.9 [id number] MD Remington Talamantes (Adult Med) [address] [place] [address] [id number] 0 03/26/2019 09:43:52 03/27/2019 08:29:59 Tobacco dependence in remission 669292902 F17.201 Screening for malignant neoplasm of breast 792065937 Z12.31 Pulmonary emphysema 8743 3001 J43.9 Start AtroventPF TS Disorder o f lipid metabolism 128544964 E78.9 Discussed Chest pain 85958703 R07. 9 Cardiology evaluation needed, I cannot explain the associatio n with Spiriva. [id number] MD Remington Talamantes (Adult Med) [address] [place] [address] [phone] 0 04/22/2019 11:25:38 04/22/2019 12:05:35 Amaurosis fugax of left eye 7483359357 7272894 G45.3 [id number] MD Remington Hammer (SHIP MANAGER) [address] [place] [address] [id number] 0 05/06/2019 10:55:38 05/07/2019 11:36:32 Gynecologic examination 42788657 Z01.419 Exposure t o sexually transmissible disorder 967023704 Z20.2 Atrophic vaginitis 30827 000 N95.2 Screening mammography 24 402884 Z12.31 [id number] MD Remington Talamantes (Adult Med) [address] [place] [address] [id number] 0 06/03/2019 09:26:37 06/04/2019 14:07:50 Amaurosis fugax of left eye 6721667933 3422958 G45.3 [id number] MD Remington Talamantes (Adult Med) [address] [place] [address] 98450-585 0 08/21/2019 11:38:59 08/21/2019 12:19:40 Fracture at wrist and/or hand level 175343102 S62.91XA Disorder o f lipid metabolism 682124499 E78.9 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 Magnetic r esonance imaging of cervical spine abnormal 438834369 R93.7 There is suggestion of MS as well as NFS, OA and central spinal stenosis Magnetic r esonance imaging of thoracic spine abnormal 987525176 R93.7 [id number] MD Remington Talamantes (Adult Med) [address] [place] [address] [id number] 0 02/18/2020 09:04:49 02/19/2020 11:17:20 Disorder of lipid metabolism 934511875 E78.9 Her LDL is still high.Stop LipitorSta rt Crestor History of total hysterectomy 433261188 Z90.710 Screening for malignant neoplasm of colon 528371242 Z12.11 Nicotine dependence 5629 4008 Z87.891 She stopped smoking in May 2017 Malaise and fatigue 2717 12822 R53.83 Screening for malignant neoplasm of breast 951493647 Z12.31 Dyspnea 299451735 R06.00 TTE 65 % Pulmonary emphysema 8743 3001 J43.9 On Atrovent and Albuterol HFA inhalerPFT S confirm COPD [id number] MD Remington Talamantes (Adult Med) [address] [place] [address] [phone] 0 02/26/2020 10:10:51 02/28/2020 10:55:12 Calcification of coronary artery 103471309 I25.84 Pulmonary emphysema 8743 3001 J43.9 On Atrovent, Albuterol HFA inhaler and SymbicortP FTS confirm COPD History of total hysterectomy 665435635 Z90.710 Pre-surger y evaluation 946519888 Z01.818 Low to moderate risk of complicati ons Aneurysm o f cerebral artery 146990093 I67.1 3 mm R ICA aneurysm [id number] MD Remington Talamantes (Adult Med) [address] [place] [address] [phone] 0 05/04/2020 15:22:49 05/04/2020 16:06:32 Colorectal cancer detected by DNA-based stool screening 751342730 R85.89 Positive Cologuard 02/27/2020Ne gative colonoscop y 04/10/2020 Depressive disorder 3548 9007 F32.9 She is still not keen on therapy or medication s at this time. Skin lesion 73767602 L98 .9 Headache 60670979 R51 There are currently no worrisome signs and her exam was benign.Giuliana ging if there is no improvemen t or if there is a change. Disorder of nail 9784917 8 L60.9 [id number] MD Remington Talamantes (Adult Med) [address] [place] [address] [phone] 0 07/16/2020 15:10:09 07/17/2020 07:26:03 Administration of influenza vaccine 57584702 Z23 [id number] MD Remington Talamantes (Adult Med) [address] [place] [address] [phone] 0 12/22/2020 13:43:58 12/23/2020 08:32:13 Pain of left ankle joint 5882853132 4148840 M25.572 Pain in right knee 89836 31414 94916 M25.561 [place] course of Tramadol Medication monitoring 39 1694372 Z51.81 Disorder o f lipid metabolism 504276738 E78.9 Postmenopa usal osteoporosis 834219722 M81.0 [id number] MD Remington Talamantes (Adult Med) [address] [place] [address] 15512-911 0 12/25/2020 14:48:17 12/28/2020 09:46:29 Pain in right knee 0328542947 25062 M25.561 [place] Short course of Tramadol Ketorolac IM, then PO Pain of le ft ankle joint 2691816296 0474371 M25.315 [id number] MD Remington Talamantes (Adult Med) [address] [place] [address] [phone] 0 04/30/2021 09:45:58 04/30/2021 10:29:54 Follow-up visit 011100069 Z09 Pulmonary emphysema 8743 3001 J43.9 Previously on Atrovent, Albuterol HFA inhaler and Symbicort, she has since stopped the Atrovent I have not been using it, they have been making my throat really sorePFTS confirm COPDMichelle is not keen on starting Spiriva at this time Cardiac pa judy in situ 928881677 Z95.0 History of placement of stent for coronary artery disease 483834027 Z95.5 Medication monitoring 39 8383588 Z51.81 Screening for malignant neoplasm of breast 760417839 Z12.31 [id number] MD Remington Talamantes (Adult Med) [address] [place] [address] [phone] 0 07/26/2021 15:37:17 07/27/2021 15:30:48 Needs influenza immunization 879478620 Z28.3 Screening for malignant neoplasm of breast 249367340 Z12.31 Postmenopa usal osteoporosis 909196186 M81.[address] Hobbs is still waiting to get her Prolia covered as she cannot tolerate Alendronat e Altered tomasz wel function 72410848 R19.4 NL colonoscop y 04/10/2020 Impaired f asting glycemia 471477732 R73.01 Discussed Mass of le ft adrenal gland 2022053788 1525793 E27.8 Immunization due 6382109 08 Z28.3 She will benefit from the SARS COVID 19 vaccine booster [id number] MD Remington Talamantes (Adult Med) [address] [place] [address] 83637-558 0 09/06/2021 12:45:46 09/07/2021 17:13:20 Immunization advised 468840088 Z71.9 Mass of le ft adrenal gland 3521321270 7655489 E27.8 [id number] MD Remington Talamantes (Adult Med) [address] [place] [address] 86451-764 0 10/19/2021 11:07:32 10/20/2021 10:31:27 History of placement of stent for coronary artery disease 342595390 Z95.5 Adrenal adenoma 98073808 8 D35.02 Benign L. adrenal adenoma, no further imaging needed Medication monitoring 39 3429948 Z51.81 [id number] MD Remington Talamantes (Adult Med) [address] [place] [address] 23644-063 0 04/18/2022 11:26:53 04/19/2022 10:10:04 Body mass index less than 20 108962614 Z68.1 Postmenopa usal osteoporosis 534635717 M81.[address] Hobbs is still waiting to get her Prolia covered as she cannot tolerate Alendronat e Exocrine p ancreatic insufficiency 49993705 K86.81 Screening mammography of bilateral breasts 5836328911 94114 Z12.31 Nicotine dependence 5629 4008 Z87.891 She stopped smoking in May 2017, she has smoked at least a PPD for 40 years Administra tion of pneumococcal vaccine 43314539 Z23 [id number] MD Remington Talamantes (Adult Med) [address] [place] [address] 76281-812 0 10/17/2022 10:03:03 10/18/2022 09:27:04 Body mass index less than 20 321364877 Z68.1 On Megace Underweight 321017531 R6 3.6 Postmenopausal state 764 55542 Z78.0 General ex amination of patient 278451997 Z00.01 [id number] MD Remington Talamantes (Adult Med) [address] [place] [address] 25002-528 0 12/29/2022 15:17:09 12/30/2022 16:47:44 History of syncope 3203012062 69201 Z86.79 Osteoporosis 45378990 M8 1.0 Patient assistance Cardiac pa cemaker in situ 391873003 Z95.0 Memorandomtronic MRI safe [place] PM [id number] MD Remington Talamantes (Adult Med) [address] [place] [address] 78673-969 0 05/26/2023 11:59:25 05/30/2023 08:24:21 Stress fracture of metatarsal bone of right foot 5037596481 8897484 M84.374A Pulmonary emphysema 8743 3001 J43.9 Osteoporosis 56202176 M8 1.0 Patient assistance has been futileUnab le to tolerate Alendronat e [id number] MD Remington Talamantes (Adult Med) [address] [place] [address] [phone] 0 09/04/2023 10:55:28 09/05/2023 10:20:46 Screening for malignant neoplasm of breast 183602554 Z12.31 Gynecologi c examination 58090168 Z01.419 Pulmonary emphysema 8743 3001 J43.9 Aspartate aminotransferase serum level above reference range 947514204 R74.01 Mucus in stool 645739826 R19.5 Malabsorpt ion? Infection? Osteoporosis 71815593 M8 1.0 Disorder o f lipid metabolism 746813845 E78.9 Immunization advised 310 341426 Z71.9 [id number] MD Remington Major (Adult Med) [address] [place] [address] [phone] 0 12/21/2023 10:49:01 12/22/2023 13:23:31 Atrophy of vagina 301965841 N95.2 Will treat with Estrogen cream. Use daily for two weeks and then three times a week. Advised patient to also put some on the external area and at the opening. Follow up in two months. [id number] MD Remington Major (Adult Med) [address] [place] [address] 09614-026 0 02/20/2024 10:13:39 02/22/2024 16:18:11 Underweight 592669457 R63.6 Weight loss 29354669 R63 .4 Chronic issue since hysterecto my. Megace has been helpful but was unable to get it for some time due to loss of provider. Recently started having it refilled again. Will check a TSH. Laboratory test result abnormal 609678773 R89.9 Recently told GFR abnormal by endocrinol ogist. Will check urine for Albumin/cr eatinine. Atrophic vaginitis 83210 000 N95.2 Continue Premarin weekly. Told her she can alternate with over the counter lubricant like Replens. Work on intimacy with spouse. Has been a long time since intimate due to AR and pacemaker years back. Follow up in six months. Osteoporosis 37058977 M8 1.0 Followed by endocrinol ogist. Myocardial infarction 22 556349 I21.9 History of AR and pacemaker. [id number] MD Remington Talamantes (Adult Med) [address] [place] [address] 83229-257 0 03/05/2024 09:58:45 03/06/2024 19:45:11 Weight loss 69678364 R63.4 -4 lbsOn MegaceMMG 2022LDCT 07/05/2022 Colonoscop y 2020 Q 5 yearsLabs 09/15/2023 TSH 02/20/2024 Disorder o f lipid metabolism 910927101 E78.9 Dysthymia 90918803 F34.1 General ex amination of patient 646937484 Z00.01 History of nicotine dependence 4928483308 35516270 Z87.891 Screening mammography 24 437849 Z12.31 [id number] MD Remington Talamantes (Adult Med) [address] [place] [address] 19883-553 0 06/04/2024 10:02:11 06/05/2024 10:20:00 Weight loss 39708159 R63.4 GI OV 03/05/2024- 4 lbsOn MegaceMMG 2022LDCT 07/05/2022 Colonoscop y 2020 Q 5 yearsLabs 09/15/2023 TSH 02/20/2024 Disorder o f lipid metabolism 491887216 E78.9 Medication monitoring 39 0745622 Z51.81 Immunization advised 310 023011 Z71.9 [id number] Mckenna Montes MD [facility] (Adult Med) [address] [place] [address] 30146-961 0 07/17/2024 09:50:13 07/23/2024 11:49:10 Weight loss 15178026 R63.4 -1 lbThe GI work up is in progress OV 06/04/2024G I OV 03/05/2024- 4 lbsOn MegaceMMG 2022LDCT 07/05/2022 Colonoscop y 2020 Q 5 yearsLabs 09/15/2023 TSH 02/20/2024 Laboratory test result abnormal 586063412 R89.9 Reported elevated creatinine , I will request her records from [facility] 03/12/2024 Creatinine 0.97 eGFR 65 BUN/Creati nine 11Labs 02/20/2024 alb:creat urine 18 [id number] MD Remington Major (Adult Med) [address] [place] [address] 72622-946 0 08/20/2024 09:52:12 08/21/2024 09:40:11 Atrophy of vagina 169635298 N95.2 Will start Estrogen cream again. Use daily for two weeks and then three times a week and then can decrease to as needed. Follow up in six months. Perianal dermatitis 5744 57314 L30.9 Patient deferred exam today. Recommende d she use Desitin or Vaseline to protect skin from moisture. If it continues to be a problem after a week or so she should let me know so I can have her come in for an exam. [id number] MD Remington Talamantes (Adult Med) [address] [place] [address] 26217-325 0 09/11/2024 09:48:39 09/12/2024 14:41:55 Serum creatinine above reference range 214862178 R79.[address] to seeCreatin ine 1.20US renal cyst Note from 07/18/2024 Labs 07/17/2024 Creatinine 1.20Discus sed with Ms Yao ephrology Simple renal cyst 084311 09 N28.1 Gastritis 1193568 K29.70 [id number] Deandre Gonzalez MD [facility] (COUNTS IN[facility] 234 BEDS AT THE [facility]) [address] [place] [address] 34766-638 2 10/22/2024 11:13:38 10/25/2024 12:26:05 Chronic kidney disease stage 3A 532174506 N18.31 Pt had creat of 1.2mg/dl in 06/2024, with egfr of 51 ml/min.BP controlled ,no h/o dm /htn reported.P t has h/o CAD WITH STENT PLACEMENT /ppm in 03/2021.Las t ua unremarkab le.,neg for blood/prot einRepeat creat in 07/2024 was less than 1.0 with rgfr 59ml/minNo nsaidWatch bp at homeNo extensive w/u done at this time,will do if persistent high creatinine or low egfr noted Hypercalcemia 25195863 E 83.52 Last ca 11.1 mg/dl,pt on calcium with vit d supplement Advised to stop calcium/vi t d supplement Coronary arteriosclerosis 44508763 I25.10 Plan per cardiology Hyperlipidemia 98255783 E78.5 Pt on statin,Rambo n per cardiology [id number] Deandre Gonzalez MD [facility] (COUNTS INCLUDE 234 BEDS AT THE [facility]) [address] [place] [address] 02479-194 2 01/14/2025 11:38:36 01/14/2025 15:17:16 Chronic kidney disease stage 2 374274898 N18.2 9917595 Kidney fxn improved, serum creatinine for 24 hour creat clearance noted to be 0.77mg/dl. 24 hour urine collection for creat clearnce however low at 67ml/min.P E UNREMARKAB LE.Avoid Nsaid if possibleRe nal us wnlBP elevated today,per pt bp normal at home,no meds added for bp at this time.Advis ed to monitor bp at home,notif y if sbp is above 140 and dbp above 90 Hypercalcemia 23193950 E 83.52 9955 Last ca level improved,c a down to 9.7mg/dl(w nl)Advised to stop calcium/vi t d supplement .bp HIGH TODAY,Pt denies h/o htnPT OFF CALCIUM/ T D SUPPLEMENT Coronary atherosclerosis 380696860 I25.10 31876568 Plan per cardiology ,has h/o PTCA/STENT ,PPM. Chronic ob structive pulmonary disease 21858082 J44.9 204725094 PLAN PER pcp [id number] Mckenna Montes MD [facility] (Adult Med) [address] [place] [address] 23577-837 0 04/15/2025 10:02:01 04/16/2025 14:07:09 Hyperthyroidism 26507041 E05.90 06924 Decreased body mass index 9196972 Z68.2 7795679329 +5 lbsOn Megace Underweight 274158983 R6 3.6 Intracranial aneurysm 12 9151737 I67.1 379801 Chronic ob structive pulmonary disease 18993583 J44.9 581945957 Declined Symbicort I don't like the way my throat feels.Mckenna ble to tolerate SpirivaCon tinue Albuterol PRNStart Wixela and rinse your mouth after each useStart IncrusePul biological sciences professor History of nicotine dependence 7861902520 64277345 Z87.065 3708105 [id number] MD Remington Talamantes (Adult Med) [address] [place] [address] 30221-308 0 06/03/2025 14:12:52 06/04/2025 08:55:27 Adult health examination 170170782 Z00.00 Health Risk Assessment collected and reviewed Screening mammography 24 347015 Z12.31 7360370654 Requires i nfluenza virus vaccination 570392510 Z23 0795704 Hypercholesterolemia 136 99145 E78.00 58383 On Atorvastat in Pulmonary emphysema 8743 3001 J43.9 On Breztri (Pt assistance through Dr Mckeon's office), Incruse and Albuterol [id number] MD Remington Major (Adult Med) [address] [place] [address] [phone] 0 06/17/2025 16:13:52 06/18/2025 10:54:24 Atrophy of vagina 354609176 N95.2 [id number] Will start Estrogen cream again. Will prescribe Estradiol instead of Premarin and hopefully insurance will cover it. Use daily for two weeks and then decrease. Will follow up in three weeks. [id number] Deandre Gonzalez MD [facility] (COUNTS INCLUDE 234 BEDS AT THE [facility]) [address] [place] [address] 51970-022 2 07/08/2025 11:29:07 07/09/2025 10:25:24 Chronic kidney disease stage 3A 945227112 N18.31 0704703592 Kidney fxn stable,cre at at baseline 1.10mg/dl with egfr of 56ml/min.B P high today,othe r place bp nl,no h/o dm /htn reported.P t has h/o CAD WITH STENT PLACEMENT /ppm in 03/2021.cbc unremarkab leLast ua unremarkab le.,neg for blood/prot einNo nsaidWatch bp at homeNo extensive w/u done at this time,will do if persistent high creatinine or low egfr notedClini chris euvolemic. Renal us nl in 07/2024.No PTH/VIT d NOTEDCALCI UM LEVEL WNL Health Concerns Section Related Observation LastModified by Organization Detai ls LastModified Time None Recorded Concern Status LastModified by Organization Details LastModified Time None Recorded Advance Directives Directive N: Payers Insurance Date Sequence Insurance Name Policy Number Policy Santa Covered Member ID Santa Member ID Guarantor Name 04/15/2025 1 [place] [facility] Michela Castroels [id number] Michela Gustavo 04/15/2025 1 [facility] - DOS ON OR AFTER 21 (MEDICAID REPLACEMENT - HMO) Michela Chen [id number] Michela Chen 01/23/2019 1 *SELF PAY* Ba alex Chen 01/23/2019 SLIDING FEE SCHEDULE - DISCOUNT Michela Chen 04/15/2025 2 [place] [facility] Michela Chen [id number] Michela Castroels 04/15/2025 1 [facility] - DOS PRIOR TO 2021 (MEDICAID REPLACEMENT - HMO) Michela Gustavo [id number] Michela Chen 04/15/2025 2 [place] WHEN MEDICARE OR MEDICARE REPLACEMENT PRIMARY) Michela Chen [id number] Michela Chen 07/08/2025 1 [employer] - PRIME (MEDICARE REPLACEMENT/A DVANTAGE - HMO) [id number] Michela Chen [id number] Michela Chen 12/27/2018 SLIDING FEE SCHEDULE - DISCOUNT Michela Chen Notes Date Note Type Note Provider Name and Address Organization Details Recorded Time 01/14/2025 text/html ROS as noted in the HPI 64 yo female here for f/u of renal consult sec to low egfr/high creat(abnl blood test for kidneys) Feels good today..Problem list noted this include h/o Adrenal adenoma,pt seeing database development project manager. DENIES H/O HTN/DM.Pt has sig heart dz ,this include h/o heart attack/PPM,PTCA with stent placement.Denies reg use of nsaid.No skin rashes.No blood in urine.+h/o smoking/COPD.quit smoking in 2017.No new complaints today. Deandre Gonzalez MD Attn: Accounting,[address] [facility], [place], [address], [place] [facility] 01/14/2025 12:16:39 04/15/2025 text/html ROS as noted in the HPI Just a check up, Dr Gonzalez said I needed to talk to you about getting a referral for a oil well pumper and a neurologistDr Lisa said there was a mass in my stomach that they were watchingAnd they did call and tell me everything was fine, an abnormal growth in my stomach Ms Chen returns, she was seen by her [facility] former in July last year and she had a colonoscopy that was possibly incomplete or with a poor prep. She then had a Barium enema locally that was normal She also had an abdominal ultrasound Dr. Cote's office, as well as an EGD. She states that she was told that she has a mass in his stomach that was being observed. She was seen by her database development project manager this month and diagnosed with Hyperthyroidism based on her low TSH from 11/06/2024. A repeat test was done according to the patient and she said she received a call that the labs were normal. She is now on Prolia for her Osteoporosis but there appear to be insurance issues. She has a history of cerebral aneurysms and was previously seen by the neurologist Dr. Guevara, he is no longer in direct patient care and she needs a repeat study and referral to a new neurologist. She has COPD and does not like Spiriva, Symbicort makes the throat feel funny and she needs a referral to a oil well pumper Mckenna Montes MD Attn: Accounting,[address] [place], [address], [facility] 04/15/2025 14:22:59 06/03/2025 text/html MAW 2Reported by PatientSocial/Behaviora l HistoryFor fracture risk, patient reportshistory of fracturesbut reportsno sudden unexplained fractures. For diet and nutrition, patient reportshealthy dietanddiscussed vitamin and supplement use.Mental Status:For concentration and memory, patient reportsdecreased concentrating abilityandmemory lapses or lossbut reportsdoes not forget words. For speech/motor difficulties, patient reportsno speech difficulties,no difficulty expressing formulated concepts,no difficulty with fine manipulative tasks,no difficulty writing/copying,no slowed reaction time, anddoes not knock things over when trying to pick them up.Functional AbilityFor vision, patient reportsworse both distance and near. For home safety, patient reportsdoes not have hand bars in the bathroom/showerbut reportsno unsafe marisela hazzards,no unsafe stairs,working smoke/co detectors,practicing 'safer sex',no fire arms, andgood lighting in the home. For hearing, patient reportsno loss of hearing. For activities of daily living, patient reportsable to bathe with limited or no assistance,able to contol urination and bowels,able to dress with limited or no assistance,able to feed self with limited or no assistance,able to get out of chair or bed with limited or no assistance,able to groom with limited or no assistance, andable to toilet with limited or no assistance. For instrumental activities of daily living, patient reportsable to do house work with limited or no assistance,able to grocery shop with limited or no assistance,able to manage medications with limited or no assistance,able to manage money with limited or no assistance,able to prepare meals with limited or no assistance, andable to use the phone with limited or no assistance. For falls risk assessment, patient reportsno frequent falls while walking,no fall in the past year,no fall since last visit, andno dizziness/vertigo.ROS as noted in the HPI I am on BreztriBefore, they said they would not My sister just found out she's got Pancreatic cancer Ms Cehn is doing relatively well, she has been following up with her oil well pumper and she is on Breztri, Incruse and Albuterol. Her LDCT was finally approved, but she has decided against getting the CT of the brain done since she cannot get seen by the neurologist. Mckenna Montes MD Attn: Accounting,[address] [place], [address], [facility] 06/03/2025 15:18:43 06/17/2025 text/html ROS as noted in the HPI Premarin cream helped some but was not able to continue to get it filled with her insurance, it would have cost over three hundred dollars, Geraldine Aponte MD Attn: Accounting[address] [place], [address], [facility] 06/17/2025 17:44:15 07/08/2025 text/html ROS as noted in the HPI 65 yo female here for f/u sec to low egfr/high creat(abnl blood test for kidneys)Feels good today..Problem list noted this include h/o Adrenal adenoma,pt seeing database development project manager.DENIES H/O HTN/DM.Pt has sig heart dz ,this include h/o heart attack/PPM,PTCA with stent placement.Denies reg use of nsaid.No skin rashes.No blood in urine.+h/o smoking/COPD.quit smoking in 2017.No new complaints today. Deandre Gonzalez MD Attn: Accounting[address] [facility], [place], [address], [place] [facility] 07/08/2025 13:20:28 OBGyn Episode Ob Episode Information Episode Created Date Number of Fetuses Patient Bloodtype Patient rh Status Prepregnancy Weight lbs Domestic Partner Domestic Partner Phone Father Name Certified Pesticide Applicator Status 05/06/20 19 1 CLOSED Fetus Data First Name Last Name Admitted to NICU Weight (g) Sex Living Outcome Pediatric Complications Fetus ID Race Codes Race Delivery Type 3968.93 M Full Term [id number] Vaginal Only Clinton Calculation Initial Clinton Date Initial Exam Date Initial Exam Provider Initial Ultrasound Date Last Menstrual Period Date Ultra Sound Weeks Gestation 0 Eighteen To Twenty Week Clinton Update Ultra Sound Date Fundal Height At Umbil Quickening Date Ultra Sound Latest Weeks Gestation Final Clinton Confirmed By Final Clinton Confirmed Date Final Clinton Date Ultra Sound Latest Days Gestation 0 0 Menstrual History Last Menstrual Date Menses Monthly On Bcp Conception Prior Menses Frequency Hcg Plus Date Menarche Onset Age Delivery Information Delivery Date Delivery Type Labor Anesthesia Weeks Gestation Incision Type Labor Labor Length Hrs Delivered By Post Complications Tubal Sterilization Discharge Date Comments 3 Discharge Information Feeding Method Contraceptive Method Maternal HG B and HCT Levels Ob Episode Information Episode Created Date Number of Fetuses Patient Bloodtype Patient rh Status Prepregnancy Weight lbs Domestic Partner Domestic Partner Phone Father Name Certified Pesticide Applicator Status 05/06/20 19 1 CLOSED Fetus Data First Name Last Name Admitted to NICU Weight (g) Sex Living Outcome Pediatric Complications Fetus ID Race Codes Race Delivery Type 3203.26 6704 M Full Term [id number] Vaginal Only Clinton Calculation Initial Clinton Date Initial Exam Date Initial Exam Provider Initial Ultrasound Date Last Menstrual Period Date Ultra Sound Weeks Gestation 0 Eighteen To Twenty Week Clinton Update Ultra Sound Date Fundal Height At Umbil Quickening Date Ultra Sound Latest Weeks Gestation Final Clinton Confirmed By Final Clinton Confirmed Date Final Clinton Date Ultra Sound Latest Days Gestation 0 0 Menstrual History Last Menstrual Date Menses Monthly On Bcp Conception Prior Menses Frequency Hcg Plus Date Menarche Onset Age Delivery Information Delivery Date Delivery Type Labor Anesthesia Weeks Gestation Incision Type Labor Labor Length Hrs Delivered By Post Complications Tubal Sterilization Discharge Date Comments 7 Discharge Information Feeding Method Contraceptive Method Maternal HG B and HCT Levels
--- NOTE | ~2025-07-24 | CT_ITS ---
Clinical History: Cerebral aneurysm Examination: CTA brain Comparison: CTA 07/12/2019 Technique: Helical images skull base to vertex IV contrast information not listed in PACS. Coronal, sagittal reformats. Multiplanar MIPS CT images acquired with automatic exposure control for dose reduction DLP: 863 mGy-cm Findings: CT HEAD: Mild white matter changes from chronic microvascular ischemic disease. Sulci and ventricles unremarkable. No intracerebral hemorrhage. No evidence acute territorial infarct. No mass effect or midline shift. Bony calvarium intact. Visualized paranasal sinuses clear. Mastoid air cells clear. CTA HEAD: Intracranial ICAs: 3 mm aneurysm right parasellar ICA. ACAs and their distal branches: Patent, unremarkable. A-Comm: Identified. Patent, unremarkable. MCAs and their distal branches: Patent, unremarkable. Basilar artery: Patent, unremarkable. expressive therapist and their distal branches: Patent. Left P1 congenitally absent; origin P-comm supply. P-Comms: Left side present. Impression: 1. No acute abnormality or significant change. 2. Unchanged 3 mm aneurysm right parasellar ICA. Reviewed, dictated and finalized at location R. Impression: 1. No acute abnormality or significant change. 2. Unchanged 3 mm aneurysm right parasellar ICA.
[2025-07-24 08:03] LABS: Estimated Glomerular Filt Rate 50
== END 2025-07-24 07:42 | disposition home or self-care (01) ==
PROVIDERS: PCP Internal Medicine Infectious Disease; Visit Provider Internal Medicine Infectious Disease
DX: I67.1 Cerebral aneurysm, nonruptured (principal)
CPT/HCPCS: 70496; Q9967